=== PATIENT | female | born 1965 | race Caucasian/White ===

== ENCOUNTER → 2016-04-13 | Outpatient (REF) | payer BC, OTHER ==
[2016-04-13 14:19] LABS: BASO % 0.2 % (0.0-1.0); EOS % 0.1 % (0.0-3.0); LARGE UNSTAINED CELL # 0.1 K/mm3 (0.0-0.4); LARGE UNSTAINED CELL % 1.6 % (0.0-4.0); LYMPH # 1.3 K/mm3 (1.5-4.5); LYMPH % 18.3 % (24.0-44.0); MEAN CORPUSCULAR HEMOGLOBIN 29.5 pg (27.0-33.0); MEAN CORPUSCULAR HGB CONC 31.6 g/dl (32.0-36.5); MEAN CORPUSCULAR VOLUME 93.2 fl (80.0-96.0); MONO # 0.5 K/mm3 (0.0-0.8); MONO % 6.9 % (0.0-5.0); NEUTROPHILS # 5.3 K/mm3 (1.8-7.7); NEUTROPHILS % 72.8 % (36.0-66.0); PLATELET COUNT, AUTOMATED 248 k/mm3 (150-450); RED CELL DISTRIBUTION WIDTH 12.6 % (11.5-14.5); WHITE BLOOD COUNT 7.3 K/mm3 (4.0-10.0)
[2016-04-13 14:33] LABS: VITAMIN B12 LEVEL 389 PG/ML
[2016-04-13 14:34] LABS: FOLATE 17.7 NG/ML
[2016-04-13 14:57] LABS: ALBUMIN 3.6 GM/DL (3.2-5.2); ALKALINE PHOSPHATASE 87 U/L (45-117); ALT/SGPT 41 U/L (12-78); ANION GAP 9 MEQ/L (8-16); AST/SGOT 28 U/L (15-37); BILIRUBIN,TOTAL 0.4 MG/DL (0.2-1.0); BLOOD UREA NITROGEN 18 MG/DL (7-18); CALCIUM LEVEL 9.2 MG/DL (8.5-10.1); CARBON DIOXIDE LEVEL 28 MEQ/L (21-32); CHLORIDE LEVEL 107 MEQ/L (98-107); CHOLESTEROL LEVEL 182 MG/DL (<200); CREATININE FOR GFR 0.97 MG/DL (0.55-1.02); FERRITIN 509 NG/ML (8-252); FREE T4 1.14 NG/DL (0.76-1.46); GLOMERULAR FILTRATION RATE > 60.0 (>51); GLUCOSE, FASTING 62 MG/DL (70-105); PERCENT SATURATION 34.6 % (13.2-37.4); POTASSIUM SERUM 4.1 MEQ/L (3.5-5.1); SODIUM LEVEL 144 MEQ/L (136-145); TOTAL IRON BINDING CAPACITY 269 UG/DL (250-450); TOTAL PROTEIN 7.6 GM/DL (6.4-8.2); TRIGLYCERIDES LEVEL 93 MG/DL (<150)
== END ==
LOC: M LAB REF 13:17
PROVIDERS: ATTEND Family Medicine
DX: D51.3 Other dietary vitamin B12 deficiency anemia (principal); D50.9 Iron deficiency anemia, unspecified; Z13.29 Encounter for screening for other suspected endocrine disorder

== ENCOUNTER 2017-01-21 10:54 | Day surgery (SDC) | payer OTHER ==
[~2017-01-21] VITALS: Ht 160 cm; Wt 99.8 kg
[~2017-01-21 10:54] MED LIST: ALLE180T33 PO; CEFD1CAP8 PO; CELE1CAP4 PO; COCO1000 PO; GABA-283 PO; LASI20TA PO; PROBCAP4 PO; SING10TA32 PO; SPIR25TA2 PO; VALT500T PO; VITA100072 IV; ZANA4CAP PO
[2017-01-21] MEDS ORDERED: ceFAZolin 2 GM/D5W 50 ML IV BAG (J0690) As Ordered ONE ×2 (11:41→16:32)
[2017-01-21] MEDS ORDERED: LR 1,000 ML IV SCH ×2 (11:45→18:30)
[2017-01-21 11:47] LABS: MEAN CORPUSCULAR HEMOGLOBIN 30.4 pg (27.0-33.0); MEAN CORPUSCULAR HGB CONC 33.5 g/dl (32.0-36.5); MEAN CORPUSCULAR VOLUME 90.6 fl (80.0-96.0); RED CELL DISTRIBUTION WIDTH 12.4 % (11.5-14.5); WHITE BLOOD COUNT 6.1 10^3/uL (4.0-10.0)
[2017-01-21] MEDS ORDERED: ROCURONIUM BROMIDE 50 MG/5 ML VIAL/SYRINGE As Ordered ONE ×3 (13:12→16:39)
[2017-01-21] MEDS ORDERED: METHYLENE BLUE 0.5% (5MG/ML) 10 ML AMP (PROVAYBLUE)(Q9968 PER 1MG) As Ordered ONE (13:14)
[2017-01-21] MEDS ORDERED: BUPIVACAINE HCL 0.25% 10 ML VIAL As Ordered ONE (13:14)
[2017-01-21] MEDS ORDERED: dexameTHASONE 4 MG/ML 1ML VIAL (J1100) As Ordered ONE (13:34)
[2017-01-21] MEDS ORDERED: METOCLOPRAMIDE INJ 10MG/2ML VIAL (J2765) As Ordered ONE (13:34)
[2017-01-21] MEDS ORDERED: ONDANSETRON 4MG/2ML VIAL (J2405) As Ordered ONE (13:35)
[2017-01-21] MEDS ORDERED: PROPOFOL 500 MG/50 ML VIAL As Ordered ONE (13:39)
[2017-01-21] MEDS ORDERED: fentaNYL 250 MCG/5 ML INJECTION (J3010) As Ordered ONE (13:39)
[2017-01-21] MEDS ORDERED: KETOROLAC 60 MG/2 ML VIAL (J1885) As Ordered ONE (13:58)
[2017-01-21] MEDS ORDERED: LIDOCAINE 2% INJ 100 MG/5 ML SDV (FOR ANES.) As Ordered ONE (13:59)
[2017-01-21] MEDS ORDERED: NEOSTIGMINE 10 MG/10 ML VIAL (J2710) As Ordered ONE (13:59)
[2017-01-21] MEDS ORDERED: GLYCOPYRROLATE INJ 0.2 MG/ML 2 ML VIAL As Ordered ONE (13:59)
[2017-01-21] MEDS ORDERED: SUCCINYLCHOLINE 100 MG/5 ML SYRINGE (J0330) As Ordered ONE (14:05)
[2017-01-21] MEDS ORDERED: HYDROmorphone HCL 2 MG/ML 1ML VIAL (J1170) As Ordered ONE (14:49)
[2017-01-21] MEDS ORDERED: ONDANSETRON 4MG/2ML VIAL (J2405) IV PRN ×2 (18:30→18:45)
[2017-01-21] MEDS ORDERED: METOCLOPRAMIDE INJ 10MG/2ML VIAL (J2765) IV PRN (18:30)
[2017-01-21] MEDS ORDERED: MEPERIDINE INJ 25 MG/ML VIAL (J2175) IV PRN (18:30)
[2017-01-21] MEDS: fentaNYL 100 MCG/2 ML INJECTION (J3010) IV PRN ×4 (18:44→19:10)
[2017-01-21] MEDS ORDERED: MORPHINE 4 MG/ML 1ML SYRINGE IV PRN (18:45)
[2017-01-21] MEDS ORDERED: KETOROLAC 30 MG/ML VIAL (J1885) IV PRN (18:45)
[2017-01-21] MEDS ORDERED: PERCOCET 5MG/325MG TAB PO PRN (18:45)
[2017-01-21] MEDS: PERCOCET 5MG/325MG TAB PO PRN ×3 (18:47→23:56)
--- NOTE | 2017-01-21 19:04 | RO ---
DATE OF PROCEDURE: 01/21/2017 PREPROCEDURE DIAGNOSIS: Pelvic pain, large fibroid uterus. POSTPROCEDURE DIAGNOSIS: Pelvic pain, large fibroid uterus. PROCEDURE: Robotic-assisted laparoscopic hysterectomy, bilateral salpingo-oophorectomy, cystoscopy, repair of ureteral transection on the right. SURGEON: Silvio Brand MD ION IMPLANT MACHINE OPERATOR: ANESTHESIA: General endotracheal ESTIMATED BLOOD LOSS: 200 mL. URINE OUTPUT: 500 mL. FINDINGS: Enlarged irregular fibroid uterus. Normal appearing ovaries and fallopian tubes bilaterally. Closed proximity of the right ovary to the right ureter due to distortion from uterine fibroids. DESCRIPTION OF PROCEDURE: The patient was taken to the operating room where general endotracheal anesthesia was induced. She was prepped and draped in a sterile fashion in the dorsal lithotomy position. A Moon catheter was placed. A [employer] uterine manipulator was placed. Periumbilical incision was made with a scalpel. A Veress needle was placed through this incision. A pneumoperitoneum was created. An 11 mm trocar was placed through this incision using Visiport. Three 8 mm suprapubic ports were placed under direct visualization without difficulty. Attention was turned to the right adnexa. The right IP ligament was coagulated and incised adjacent to the hilum of the ovary. Within a matter of minutes into the case, it was recommended that there was an injury to the right ureteter, which was adjacent to the hilum of the ovary and had been put on stretch due to tension from uterine fibroids. The injury was immediately identified. Both ends of the ureter were tagged with #2-0 Vicryl suture. The procedure was resumed, broad ligament attachments to the right ovary were taken down sharply using monopolar Endo Annalisa and a bipolar PK device. The round ligament was coagulated and incised. Anterior and posterior leaves of the broad ligament were . The uterine vessels were skeletonized, coagulated and incised. On the left, the IP ligament was coagulated and incised. The ureter was identified away from the operative site and not adjacent to the left ovary. Broad ligament attachments were taken down sharply. The left round ligament was coagulated and incised and the anterior and posterior leaves of the broad ligament were . The uterine vessels on the left were coagulated, incised. A colpotomy was created using the monopolar Endo Annalisa in the upper vagina at the level of the VCare cup. The specimen including the uterus, cervix and both ovaries and fallopian tubes were removed through the vagina. The vaginal cuff was closed with #2 V-Loc suture in a running fashion. The pelvis was irrigated copiously. The patient received methylene blue dye intravenously. Cystoscopy was performed using a 70 degrees cystoscope. Multiple ureteral jets were noted on the left side. There was no ureteral jet noted on the right side as expected. There was no injury to the bladder. Dr. Garfield Martino from urology had been contacted earlier about the incidental ureteral injury. He kindly came to the operating room and performed an end-to-end anastomosis primary anastomosis of the ureter on the right. For details of the operation please see Dr. Martino's operative note. At the end of the case, sponge, instrument and needle counts were correct. A HOLLY drain was left in place. The skin was closed with #4-0 Monocryl subcuticular sutures.
--- NOTE | 2017-01-21 19:10 | REP ---
KUB: Single view: History: Status post stent placement. Findings: Supine portable view of the abdomen demonstrates a double pigtail stent in place in the right ureter. There is a presumed drainage catheter along the left lower quadrant of the abdomen. There are clips in the right upper quadrant. The bowel gas pattern is normal. There are however two areas of extra abdominal subcutaneous or soft tissue emphysema. One is along the obturator foramen in the right pelvis and along the right pelvic sidewall and the other is along the right flank. No other abnormality. Impression: Interstitial extra abdominal air along the right pelvis and right flank. Right double pigtail ureteral stent in place and left lower quadrant surgical drain seen. Signed by Rob Ferrera MD 01/21/2017 07:25 P
[2017-01-21] MEDS: oxyBUTYnin 5 MG TAB PO PRN (19:14)
[2017-01-21 19:55] VITALS: BP 139/76
[2017-01-21 20:25] VITALS: BP 132/85
[2017-01-21 20:55] VITALS: BP 133/72
[2017-01-21] MEDS ORDERED: GABAPENTIN 400 MG CAP PO SCH (21:00)
--- NOTE | 2017-01-21 21:04 | RO ---
DATE OF PROCEDURE: 01/21/2017 PREPROCEDURE DIAGNOSIS: Right ureteral injury. POSTPROCEDURE DIAGNOSIS: Right ureteral injury. PROCEDURE: Right robotic-assisted laparoscopic ureteroureterostomy, cystoscopy, right ureteral stent placement. SURGEON: Dr. Garfield Martino ENGINEER AUTOMATED EQUIPMENT: None. ANESTHESIA: General. OPERATIVE INDICATIONS: This is a 51-year-old female who was undergoing a robotic-assisted laparoscopic hysterectomy with Dr. Brand today. There was an inadvertent right ureteral transection. Urology was called into the operating room to assist with repair. DESCRIPTION OF PROCEDURE: By the time I started my procedure, Dr. Brand had already completed the hysterectomy. The patient was already prepped and draped in the dorsal lithotomy position. Robotic ports had already been placed. I began my portion of the procedure by performing a rigid cystoscopy. At this point, a guidewire was advanced up the right ureter. I then advanced a ureteral stent up the right ureter. The wire was then removed, and there was an adequate curl of the stent within the bladder. I then removed the cystoscope and placed an 18-[place] Moon catheter. The balloon was filled with sterile water. At this point, the robot was then re-docked. Once I examined the abdomen, Dr. Brand had already marked the location of the distal and proximal ureter. There appeared to be a complete transection. There was cautery injury to both ends of the ureter. At this point, I mobilized the proximal and distal ends of the ureter. I then excised the cauterized ends of the proximal and distal ureter using cold scissors. At this point, both ends of the ureter were spatulated. I then inserted a guidewire in through the robotic-assisted port and advanced that in through one of the holes of the stent. This was placed all the way through the stent until it was seen protruding through the proximal end of the stent. I then utilized the wire to guide the proximal end of the stent into the proximal ureter. Once the stent was all the way up the ureter, the wire was then removed and at this point, the proximal end of the stent was within the kidney. After that was done, the anastomosis was then performed in a running fashion with two separate #4-0 Vicryl sutures. This was done in a tension-free manner. Once done with the anastomosis, it appeared to be watertight. After the anastomosis was performed, a Richmond-Marino drain was brought in through the left hand robotic port site and then the end of the drain was placed near the anastomosis. Once this was done, this marked the conclusion and my portion of the procedure, and it was turned back over to Dr. Brand to remove the robotic ports and close the abdomen. ESTIMATED BLOOD LOSS: 5 mL for my portion of the procedure. COMPLICATIONS: None. SPECIMENS: None. PLAN: The patient will be kept in the hospital overnight per routine from Dr. Brand. As soon as she is tolerating a regular diet and her pain is controlled with oral pain medications, she will be able to be discharged home tomorrow. If her Richmond-Marino drain output is low, that can be removed prior to discharge. If there is any concern, fluid creatinine can be sent from the Richmond-Marino drain and if creatinine is consistent with serum, then the drain can be removed. Her Moon catheter can be removed tomorrow morning. Her stent will need to be left in place for 4 weeks. I will have her followup with me in clinic for a postoperative visit in 1-2 weeks. I will plan to take her stent out in the office in 4 weeks. HARMONY
[2017-01-21] MEDS: LR 1,000 ML IV SCH (21:56)
[2017-01-21 22:00] VITALS: BP 126/67
[2017-01-21] MEDS: DOCUSATE SODIUM 100 MG CAP PO SCH (22:06)
[2017-01-21 23:00] VITALS: BP 120/59
[2017-01-22] VITALS: BP 120/59
[2017-01-22 01:00] VITALS: BP 119/69
[2017-01-22 02:00] VITALS: BP 139/67
[2017-01-22] MEDS: LR 1,000 ML IV SCH (02:45)
[2017-01-22] MEDS: oxyBUTYnin 5 MG TAB PO PRN ×2 (03:12→12:12)
[2017-01-22 05:00] VITALS: BP 122/66
[2017-01-22 08:00] VITALS: BP 129/76
[2017-01-22] MEDS: DOCUSATE SODIUM 100 MG CAP PO SCH (08:21)
[2017-01-22] MEDS ORDERED: OXYC1TAB23 PO (10:51)
[2017-01-22] MEDS ORDERED: DITR5TAB PO (10:57)
[2017-01-22] MEDS ORDERED: PERCOCET PO (10:57)
[2017-01-22] MEDS: PERCOCET 5MG/325MG TAB PO PRN (12:12)
--- NOTE | 2017-01-22 13:43 | IPNPDOC ---
Assessment/Plan Date Seen The patient was seen on 01/22/17. Plan/VTE VTE Prophylaxis Ordered?: No Subjective Review oF Systems Chief Complaint The patient is a 51-year-old female admitted with a reason for visit of Large Fibroid Uterus; s/p right primary ureteroureterostomy intraoperative secondary to ureter transection. Patient not seen by Urology as already discharged home by primary service. Objective Vital Signs/I&O Vital Signs Date Time Temp Pulse Resp B/P (MAP) Pulse Ox O2 Delivery O2 Flow Rate FiO2 01/22/17 12:12 16 01/22/17 08:00 97.7 68 129/76 (93) 97 Room Air 01/22/17 05:00 2.0 I&O- Last 24 Hours up to 6 AM 01/23/17 06:00 Intake Total 390 ml Output Total 655 ml Balance -265 ml ALEISHA GERARDO MD Jan 22, 2017 13:43
== END 2017-01-22 12:20 | disposition home or self-care (01) ==
LOC: M SDC 10:54 → M PED 19:45 → M SDC 01-22 12:20
PROVIDERS: ATTEND Specialist
DX: D25.1 Intramural leiomyoma of uterus (principal); D25.2 Subserosal leiomyoma of uterus; N83.201 Unspecified ovarian cyst, right side; S37.19XA Other injury of ureter, initial encounter; Y69 Unspecified misadventure during surgical and medical care; Y92.234 Operating room of hospital as the place of occurrence of the external cause; Y99.8 Other external cause status; I10 Essential (primary) hypertension; G47.33 Obstructive sleep apnea (adult) (pediatric); E53.8 Deficiency of other specified B group vitamins; D64.9 Anemia, unspecified; J45.909 Unspecified asthma, uncomplicated; R60.0 Localized edema; D80.2 Selective deficiency of immunoglobulin A [IgA]; M12.9 Arthropathy, unspecified; Z88.1 Allergy status to other antibiotic agents; Z88.8 Allergy status to other drugs, medicaments and biological substances; Z91.09 Other allergy status, other than to drugs and biological substances; Z79.899 Other long term (current) drug therapy; Z86.19 Personal history of other infectious and parasitic diseases; Z86.14 Personal history of Methicillin resistant Staphylococcus aureus infection
CPT/HCPCS: 50949; 52332; 58571; 74000; 85027; 86850; 86900; 86901; 88309; 96374; 96375; A6024; C1769; C2617; J0330; J0690; J1100; J1170; J1885; J2405; J2710; J2765; J3010; Q9968

== ENCOUNTER → 2017-03-31 | Outpatient (REF) | payer OTHER ==
[~2017-03-31] MED LIST changes: +DITR5TAB PO; +OXYC1TAB23 PO; +PERCOCET PO
[2017-03-31 13:42] LABS: CALCIUM LEVEL 8.9 MG/DL (8.5-10.1); CREATININE FOR GFR 1.61 MG/DL (0.55-1.02); GLOMERULAR FILTRATION RATE 35.9 (>51); POTASSIUM SERUM 4.5 MEQ/L (3.5-5.1)
== END ==
LOC: M LAB REF 12:01
PROVIDERS: ATTEND Urology
DX: N13.5 Crossing vessel and stricture of ureter without hydronephrosis (principal)

== ENCOUNTER → 2017-04-07 | Outpatient (CLI) | payer OTHER ==
[~2017-04-07] MED LIST changes: -ALLE180T33 PO; -CEFD1CAP8 PO; -CELE1CAP4 PO; -COCO1000 PO; -DITR5TAB PO; -GABA-283 PO; +ISOVUE-370 76% 100ML VIAL (Q9967) As Ordered; -LASI20TA PO; -OXYC1TAB23 PO; -PERCOCET PO; -PROBCAP4 PO; -SING10TA32 PO; -SPIR25TA2 PO; -VALT500T PO; -VITA100072 IV; -ZANA4CAP PO
== END ==
LOC: M RAD 09:49
DX: N20.1 Calculus of ureter (principal)

== ENCOUNTER → 2017-04-13 | Outpatient (CLI) | payer OTHER ==
[2017-04-13 15:54] LABS: HEMATOCRIT 39.7 % (36.0-47.0); HEMOGLOBIN 12.9 g/dl (12.0-16.0); MEAN CORPUSCULAR HEMOGLOBIN 29.3 pg (27.0-33.0); MEAN CORPUSCULAR HGB CONC 32.5 g/dl (32.0-36.5); MEAN CORPUSCULAR VOLUME 90.2 fl (80.0-96.0); PLATELET COUNT, AUTOMATED 211 10^3/uL (150-450); RED CELL DISTRIBUTION WIDTH 12.7 % (11.5-14.5); WHITE BLOOD COUNT 5.4 10^3/uL (4.0-10.0)
[2017-04-13 17:21] LABS: ANION GAP 6 MEQ/L (8-16); BLOOD UREA NITROGEN 17 MG/DL (7-18); CALCIUM LEVEL 8.3 MG/DL (8.5-10.1); CARBON DIOXIDE LEVEL 32 MEQ/L (21-32); CHLORIDE LEVEL 105 MEQ/L (98-107); CREATININE FOR GFR 1.65 MG/DL (0.55-1.02); GLOMERULAR FILTRATION RATE 34.9 (>51); GLUCOSE, FASTING 99 MG/DL (70-105); POTASSIUM SERUM 3.8 MEQ/L (3.5-5.1); SODIUM LEVEL 143 MEQ/L (136-145)
== END ==
LOC: M LAB 15:26
DX: Z01.818 Encounter for other preprocedural examination (principal); N13.5 Crossing vessel and stricture of ureter without hydronephrosis
CPT/HCPCS: 80048

== ENCOUNTER → 2017-04-14 | Outpatient (CLI) | payer OTHER | LOC: M EKG 11:00 | DX: Z01.818 Encounter for other preprocedural examination (principal); N13.5 Crossing vessel and stricture of ureter without hydronephrosis | CPT/HCPCS: 71046 ==

== ENCOUNTER 2017-04-18 11:09 | Inpatient (IN) | payer OTHER ==
[2017-04-18] MEDS: LR 1,000 ML IV ×2 (12:19→16:30)
[2017-04-18] MEDS ORDERED: fentaNYL 100 MCG/2 ML INJECTION (J3010) As Ordered (14:06)
[2017-04-18] MEDS ORDERED: MIDAZOLAM INJ 2 MG/2 ML VIAL (J2250) As Ordered (14:06)
[2017-04-18] MEDS ORDERED: ONDANSETRON 4MG/2ML VIAL (J2405) As Ordered (14:34)
[2017-04-18] MEDS ORDERED: dexameTHASONE 4 MG/ML 1ML VIAL (J1100) As Ordered (14:34)
[2017-04-18] MEDS: CONRAY-60 60% 50ML VIAL (Q9961) As Ordered (14:38)
[2017-04-18] MEDS ORDERED: PERCOCET 5MG/325MG TAB PO (15:15)
[2017-04-18] MEDS ORDERED: ONDANSETRON 4MG/2ML VIAL (J2405) IV (15:15)
[2017-04-18] MEDS ORDERED: fentaNYL 100 MCG/2 ML INJECTION (J3010) IV (15:15)
[2017-04-18] MEDS ORDERED: LABETALOL HCL 100 MG/20 ML VIAL As Ordered (15:22)
[2017-04-18] MEDS: LABETALOL HCL 100 MG/20 ML VIAL IV ×6 (15:25→16:30)
[2017-04-18] MEDS ORDERED: hydrALAZINE INJ 20 MG/ML VIAL IV (18:00)
[2017-04-18] MEDS: MONTELUKAST 10 MG TAB PO (18:40)
[2017-04-18] MEDS: ACETAMINOPHEN TAB 650MG DOSE (2X325MG) PO (18:40)
[2017-04-18] MEDS: amLODIPine 5 MG TAB PO (18:41)
[2017-04-18] MEDS: FEXOFENADINE 60 MG TAB PO (19:40)
[2017-04-18] MEDS: **hydrALAZINE HCL** 25 MG TAB PO (20:01)
[2017-04-18] MEDS: tiZANidine 4 MG TAB PO (22:01)
[2017-04-18] MEDS: CEFUROXIME 500 MG TAB PO (22:01)
[2017-04-18] MEDS: GABAPENTIN 400 MG CAP PO (22:01)
[2017-04-18] MEDS: DOCUSATE SODIUM 100 MG CAP PO (22:01)
[2017-04-18] MEDS: PERCOCET 5MG/325MG TAB PO (22:02)
[2017-04-18] MEDS: valACYclovir HCL 500 MG TAB PO (22:02)
[2017-04-19] MEDS ORDERED: NS 1,000 ML IV
[2017-04-19] MEDS: **hydrALAZINE HCL** 25 MG TAB PO ×3 (06:00→21:16)
[2017-04-19 07:53] LABS: HEMATOCRIT 38.4 % (36.0-47.0); HEMOGLOBIN 12.7 g/dl (12.0-16.0); MEAN CORPUSCULAR HEMOGLOBIN 29.2 pg (27.0-33.0); MEAN CORPUSCULAR HGB CONC 33.1 g/dl (32.0-36.5); MEAN CORPUSCULAR VOLUME 88.3 fl (80.0-96.0); PLATELET COUNT, AUTOMATED 236 10^3/uL (150-450); RED BLOOD COUNT 4.35 10^6/uL (4.00-5.40); RED CELL DISTRIBUTION WIDTH 12.3 % (11.5-14.5); WHITE BLOOD COUNT 9.3 10^3/uL (4.0-10.0)
[2017-04-19 07:55] LABS: ANION GAP 8 MEQ/L (8-16); BLOOD UREA NITROGEN 17 MG/DL (7-18); CALCIUM LEVEL 8.5 MG/DL (8.5-10.1); CARBON DIOXIDE LEVEL 27 MEQ/L (21-32); CHLORIDE LEVEL 104 MEQ/L (98-107); CREATININE FOR GFR 1.49 MG/DL (0.55-1.02); GLOMERULAR FILTRATION RATE 39.3 (>51); GLUCOSE, FASTING 127 MG/DL (70-105); SODIUM LEVEL 139 MEQ/L (136-145)
[2017-04-19 08:07] LABS: INR 0.97
[2017-04-19 08:08] LABS: PARTIAL THROMBOPLASTIN TIME 29.2 SECONDS (26.8-37.9)
[2017-04-19] MEDS: DOCUSATE SODIUM 100 MG CAP PO ×2 (09:28→21:16)
[2017-04-19] MEDS: CEFUROXIME 500 MG TAB PO ×2 (09:38→21:16)
[2017-04-19] MEDS: MONTELUKAST 10 MG TAB PO (09:39)
[2017-04-19] MEDS: FEXOFENADINE 60 MG TAB PO (09:39)
[2017-04-19] MEDS: amLODIPine 5 MG TAB PO (09:39)
[2017-04-19] MEDS: **hydrALAZINE** 10 MG TAB PO (14:21)
[2017-04-19] MEDS: FLUCONAZOLE 100 MG TAB PO (16:11)
[2017-04-19] MEDS: LACTOBACILLUS ACIDOPHILUS CAP (BACID) PO (21:16)
[2017-04-19] MEDS: valACYclovir HCL 500 MG TAB PO (21:16)
[2017-04-19] MEDS: tiZANidine 4 MG TAB PO (21:16)
[2017-04-19] MEDS: GABAPENTIN 400 MG CAP PO (21:16)
[2017-04-20 06:55] LABS: HEMATOCRIT 37.2 % (36.0-47.0); HEMOGLOBIN 12.1 g/dl (12.0-16.0); MEAN CORPUSCULAR HEMOGLOBIN 29.1 pg (27.0-33.0); MEAN CORPUSCULAR HGB CONC 32.5 g/dl (32.0-36.5); MEAN CORPUSCULAR VOLUME 89.4 fl (80.0-96.0); PLATELET COUNT, AUTOMATED 204 10^3/uL (150-450); RED BLOOD COUNT 4.16 10^6/uL (4.00-5.40); RED CELL DISTRIBUTION WIDTH 12.6 % (11.5-14.5); WHITE BLOOD COUNT 6.9 10^3/uL (4.0-10.0)
[2017-04-20 07:14] LABS: ANION GAP 4 MEQ/L (8-16); BLOOD UREA NITROGEN 23 MG/DL (7-18); CALCIUM LEVEL 8.5 MG/DL (8.5-10.1); CARBON DIOXIDE LEVEL 31 MEQ/L (21-32); CHLORIDE LEVEL 105 MEQ/L (98-107); CREATININE FOR GFR 1.46 MG/DL (0.55-1.02); GLOMERULAR FILTRATION RATE 40.2 (>51); GLUCOSE, FASTING 100 MG/DL (70-105); POTASSIUM SERUM 3.6 MEQ/L (3.5-5.1); SODIUM LEVEL 140 MEQ/L (136-145)
[2017-04-20] MEDS: **hydrALAZINE HCL** 25 MG TAB PO ×3 (08:08→17:20)
[2017-04-20] MEDS: LACTOBACILLUS ACIDOPHILUS CAP (BACID) PO (08:09)
[2017-04-20] MEDS: FEXOFENADINE 60 MG TAB PO (08:09)
[2017-04-20] MEDS: MONTELUKAST 10 MG TAB PO (08:10)
[2017-04-20] MEDS: CEFUROXIME 500 MG TAB PO (08:10)
[2017-04-20] MEDS: DOCUSATE SODIUM 100 MG CAP PO (08:10)
[2017-04-20] MEDS: amLODIPine 5 MG TAB PO (08:10)
[2017-04-20] MEDS ORDERED: LIDOCAINE 2% MDV 20 ML VIAL As Ordered (11:19)
[2017-04-20] MEDS ORDERED: ISOVUE-300 61% 50ML VIAL (Q9967) As Ordered (11:20)
[2017-04-20] MEDS ORDERED: fentaNYL 100 MCG/2 ML INJECTION (J3010) As Ordered ×2 (11:22→12:27)
[2017-04-20] MEDS ORDERED: MIDAZOLAM INJ 2 MG/2 ML VIAL (J2250) As Ordered (11:22)
[2017-04-20] MEDS ORDERED: ceFAZolin 1GM INJ (J0690 PER 500MG) As Ordered (11:23)
[2017-04-20] MEDS ORDERED: PERCOCET 5MG/325MG TAB As Ordered ×2 (12:27→12:55)
[2017-04-20] MEDS: PERCOCET 5MG/325MG TAB PO ×3 (12:30→17:11)
[2017-04-20] MEDS: fentaNYL 100 MCG/2 ML INJECTION (J3010) IV (12:37)
[2017-04-20] MEDS ORDERED: ONDANSETRON 4MG/2ML VIAL (J2405) IV (13:00)
[2017-04-20] MEDS: ONDANSETRON 4MG/2ML VIAL (J2405) IV (17:09)
== END 2017-04-20 18:05 | disposition home or self-care (01) | DRG 661 ==
LOC: M SDC 11:09 → M PED 16:13
PROC: 0T9B80Z Drainage of Bladder with Drainage Device, Via Natural or Artificial Opening Endoscopic (ICD-10-PCS; 2017-04-18 14:00)
PROC: 0TJ98ZZ Inspection of Ureter, Via Natural or Artificial Opening Endoscopic (ICD-10-PCS; 2017-04-18 14:00)
PROC: 0T7 Urinary System, Dilation (ICD-10-PCS; principal; 2017-04-18 14:18)
DX: N13.5 Crossing vessel and stricture of ureter without hydronephrosis (principal); E78.5 Hyperlipidemia, unspecified; G47.33 Obstructive sleep apnea (adult) (pediatric); I16.0 Hypertensive urgency; J30.9 Allergic rhinitis, unspecified; Z90.710 Acquired absence of both cervix and uterus; Z88.1 Allergy status to other antibiotic agents; Z88.8 Allergy status to other drugs, medicaments and biological substances; Z91.048 Other nonmedicinal substance allergy status; Z79.899 Other long term (current) drug therapy; Z99.89 Dependence on other enabling machines and devices; Z90.49 Acquired absence of other specified parts of digestive tract

== ENCOUNTER → 2017-04-26 | Outpatient (REF) | payer OTHER ==
[2017-04-26 13:16] LABS: HEMATOCRIT 42.6 % (36.0-47.0); HEMOGLOBIN 14.1 g/dl (12.0-16.0); MEAN CORPUSCULAR HEMOGLOBIN 29.1 pg (27.0-33.0); MEAN CORPUSCULAR HGB CONC 33.1 g/dl (32.0-36.5); MEAN CORPUSCULAR VOLUME 87.8 fl (80.0-96.0); PLATELET COUNT, AUTOMATED 246 10^3/uL (150-450); RED BLOOD COUNT 4.85 10^6/uL (4.00-5.40); RED CELL DISTRIBUTION WIDTH 12.4 % (11.5-14.5); WHITE BLOOD COUNT 8.2 10^3/uL (4.0-10.0)
[2017-04-26 13:58] LABS: ANION GAP 9 MEQ/L (8-16); BLOOD UREA NITROGEN 23 MG/DL (7-18); CALCIUM LEVEL 9.1 MG/DL (8.5-10.1); CARBON DIOXIDE LEVEL 29 MEQ/L (21-32); CHLORIDE LEVEL 101 MEQ/L (98-107); CREATININE FOR GFR 1.45 MG/DL (0.55-1.02); GLOMERULAR FILTRATION RATE 40.5 (>51); GLUCOSE, FASTING 112 MG/DL (70-105); POTASSIUM SERUM 4.3 MEQ/L (3.5-5.1); SODIUM LEVEL 139 MEQ/L (136-145)
== END ==
LOC: M LAB REF 12:54
DX: Z01.818 Encounter for other preprocedural examination (principal); N13.5 Crossing vessel and stricture of ureter without hydronephrosis

== ENCOUNTER → 2017-05-04 | Outpatient (REF) | payer OTHER | LOC: M SMT 13:49 | DX: N13.5 Crossing vessel and stricture of ureter without hydronephrosis (principal); Z01.818 Encounter for other preprocedural examination; N39.0 Urinary tract infection, site not specified ==

== ENCOUNTER 2017-05-09 20:25 | Inpatient (IN) | payer OTHER ==
[2017-05-09] MEDS ORDERED: ACETAMINOPHEN TAB 650MG DOSE (2X325MG) PO (20:30)
[2017-05-09] MEDS ORDERED: MORPHINE 2 MG/ML 1ML SYRINGE IV (20:30)
[2017-05-09 21:57] LABS: HEMATOCRIT 37.7 % (36.0-47.0); HEMOGLOBIN 12.6 g/dl (12.0-16.0); MEAN CORPUSCULAR HEMOGLOBIN 29.1 pg (27.0-33.0); MEAN CORPUSCULAR HGB CONC 33.4 g/dl (32.0-36.5); MEAN CORPUSCULAR VOLUME 87.1 fl (80.0-96.0); PLATELET COUNT, AUTOMATED 208 10^3/uL (150-450); RED BLOOD COUNT 4.33 10^6/uL (4.00-5.40); RED CELL DISTRIBUTION WIDTH 12.3 % (11.5-14.5); WHITE BLOOD COUNT 12.1 10^3/uL (4.0-10.0)
[2017-05-09 22:15] LABS: ANION GAP 6 MEQ/L (8-16); BLOOD UREA NITROGEN 16 MG/DL (7-18); CALCIUM LEVEL 8.6 MG/DL (8.5-10.1); CARBON DIOXIDE LEVEL 30 MEQ/L (21-32); CHLORIDE LEVEL 101 MEQ/L (98-107); CREATININE FOR GFR 1.62 MG/DL (0.55-1.30); GLOMERULAR FILTRATION RATE 35.7 (>51); GLUCOSE, FASTING 129 MG/DL (70-100); POTASSIUM SERUM 3.4 MEQ/L (3.5-5.1); SODIUM LEVEL 137 MEQ/L (136-145)
[2017-05-10] MEDS: PIPERACILLIN/TAZOBACTAM SOD 3.375 GM in APPROPRIATE DILUENT 1 EA IV ×5 (00:14→23:13)
[2017-05-10] MEDS: DOCUSATE SODIUM 100 MG CAP PO ×3 (00:14→20:39)
[2017-05-10] MEDS: OMEPRAZOLE 20 MG CAP PO ×3 (00:14→20:38)
[2017-05-10] MEDS: NS 1,000 ML IV ×2 (02:58→23:12)
[2017-05-10] MEDS: ONDANSETRON 4MG/2ML VIAL (J2405) IV ×3 (02:58→23:13)
[2017-05-10 07:31] LABS: HEMATOCRIT 37.1 % (36.0-47.0); HEMOGLOBIN 12.2 g/dl (12.0-16.0); MEAN CORPUSCULAR HEMOGLOBIN 28.6 pg (27.0-33.0); MEAN CORPUSCULAR HGB CONC 32.9 g/dl (32.0-36.5); MEAN CORPUSCULAR VOLUME 87.1 fl (80.0-96.0); PLATELET COUNT, AUTOMATED 211 10^3/uL (150-450); RED BLOOD COUNT 4.26 10^6/uL (4.00-5.40); RED CELL DISTRIBUTION WIDTH 12.4 % (11.5-14.5); WHITE BLOOD COUNT 8.3 10^3/uL (4.0-10.0)
[2017-05-10 07:43] LABS: ANION GAP 5 MEQ/L (8-16); BLOOD UREA NITROGEN 14 MG/DL (7-18); CALCIUM LEVEL 8.7 MG/DL (8.5-10.1); CARBON DIOXIDE LEVEL 32 MEQ/L (21-32); CHLORIDE LEVEL 103 MEQ/L (98-107); CREATININE FOR GFR 1.53 MG/DL (0.55-1.30); GLOMERULAR FILTRATION RATE 38.1 (>51); GLUCOSE, FASTING 100 MG/DL (70-100); POTASSIUM SERUM 3.6 MEQ/L (3.5-5.1); SODIUM LEVEL 140 MEQ/L (136-145)
[2017-05-10] MEDS ORDERED: SPIRONOLACTONE 25 MG TAB PO (09:00)
[2017-05-10] MEDS ORDERED: VALSARTAN 80 MG TAB (DIOVAN) PO (09:00)
[2017-05-10] MEDS: **hydrALAZINE** 10 MG TAB PO ×3 (09:45→20:37)
[2017-05-10] MEDS: MAGNESIUM CITRATE 300 ML BTL PO (13:07)
[2017-05-10] MEDS: amLODIPine 10 MG TAB PO (20:38)
[2017-05-11] MEDS ORDERED: **UNRESOLVED NON-FORMULARY MED ORDER XX (00:01)
[2017-05-11] MEDS: PIPERACILLIN/TAZOBACTAM SOD 3.375 GM in APPROPRIATE DILUENT 1 EA IV ×4 (05:30→23:57)
[2017-05-11 07:10] LABS: HEMATOCRIT 37.8 % (36.0-47.0); HEMOGLOBIN 12.5 g/dl (12.0-16.0); MEAN CORPUSCULAR HEMOGLOBIN 29.1 pg (27.0-33.0); MEAN CORPUSCULAR HGB CONC 33.1 g/dl (32.0-36.5); MEAN CORPUSCULAR VOLUME 87.9 fl (80.0-96.0); PLATELET COUNT, AUTOMATED 221 10^3/uL (150-450); RED CELL DISTRIBUTION WIDTH 12.3 % (11.5-14.5); WHITE BLOOD COUNT 6.7 10^3/uL (4.0-10.0)
[2017-05-11] MEDS: LIDOCAINE 2% INJ 100 MG/5 ML SDV (FOR ANES.) XX (07:10)
[2017-05-11] MEDS: fentaNYL 250 MCG/5 ML INJECTION (J3010) XX ×2 (07:10→10:16)
[2017-05-11] MEDS: ROCURONIUM BROMIDE 50 MG/5 ML VIAL XX (07:10)
[2017-05-11] MEDS: PROPOFOL 200 MG/20 ML VIAL XX (07:10)
[2017-05-11] MEDS: LIDOCAINE 1% SDV INJ 30 ML VIAL XX (07:22)
[2017-05-11 07:24] LABS: ANION GAP 5 MEQ/L (8-16); BLOOD UREA NITROGEN 15 MG/DL (7-18); CARBON DIOXIDE LEVEL 31 MEQ/L (21-32); CHLORIDE LEVEL 104 MEQ/L (98-107); CREATININE FOR GFR 1.72 MG/DL (0.55-1.30); GLOMERULAR FILTRATION RATE 33.3 (>51); GLUCOSE, FASTING 104 MG/DL (70-100); POTASSIUM SERUM 3.5 MEQ/L (3.5-5.1); SODIUM LEVEL 140 MEQ/L (136-145)
[2017-05-11] MEDS: DOCUSATE SODIUM 100 MG CAP PO ×2 (09:00→20:32)
[2017-05-11] MEDS: **hydrALAZINE** 10 MG TAB PO ×3 (09:00→20:35)
[2017-05-11] MEDS: OMEPRAZOLE 20 MG CAP PO ×2 (09:00→20:31)
[2017-05-11] MEDS: fentaNYL 100 MCG/2 ML INJECTION (J3010) XX (09:31)
[2017-05-11] MEDS ORDERED: NEOSTIGMINE 10 MG/10 ML VIAL (J2710) As Ordered (09:46)
[2017-05-11] MEDS ORDERED: KETOROLAC 60 MG/2 ML VIAL (J1885) As Ordered (09:46)
[2017-05-11] MEDS ORDERED: GLYCOPYRROLATE INJ 0.2 MG/ML 2 ML VIAL As Ordered (09:46)
[2017-05-11] MEDS ORDERED: ONDANSETRON 4MG/2ML VIAL (J2405) As Ordered (09:46)
[2017-05-11] MEDS ORDERED: dexameTHASONE 4 MG/ML 1ML VIAL (J1100) As Ordered (09:46)
[2017-05-11] MEDS: HYDROmorphone HCL 2 MG/ML 1ML VIAL (J1170) XX (10:53)
[2017-05-11] MEDS ORDERED: ZOSYN 3.375 GM VIAL (J2543) As Ordered (12:39)
[2017-05-11] MEDS: BUPIVACAINE HCL 0.25% 30 ML VIAL XX (14:08)
[2017-05-11 14:29] LABS: HEMATOCRIT 39.6 % (36.0-47.0); MEAN CORPUSCULAR HGB CONC 32.8 g/dl (32.0-36.5); MEAN CORPUSCULAR VOLUME 88.2 fl (80.0-96.0); PLATELET COUNT, AUTOMATED 250 10^3/uL (150-450); RED BLOOD COUNT 4.49 10^6/uL (4.00-5.40); RED CELL DISTRIBUTION WIDTH 12.4 % (11.5-14.5)
[2017-05-11] MEDS ORDERED: ONDANSETRON 4MG/2ML VIAL (J2405) IV (14:45)
[2017-05-11] MEDS ORDERED: fentaNYL 100 MCG/2 ML INJECTION (J3010) IV (14:45)
[2017-05-11] MEDS: LR 1,000 ML IV (14:45)
[2017-05-11 14:46] LABS: ANION GAP 7 MEQ/L (8-16); BLOOD UREA NITROGEN 16 MG/DL (7-18); CALCIUM LEVEL 8.7 MG/DL (8.5-10.1); CARBON DIOXIDE LEVEL 28 MEQ/L (21-32); CHLORIDE LEVEL 107 MEQ/L (98-107); CREATININE FOR GFR 1.87 MG/DL (0.55-1.30); GLOMERULAR FILTRATION RATE 30.2 (>51); GLUCOSE, FASTING 145 MG/DL (70-100); SODIUM LEVEL 142 MEQ/L (136-145)
[2017-05-11] MEDS: NS 1,000 ML IV (15:00)
[2017-05-11] MEDS ORDERED: oxyBUTYnin 5 MG TAB PO (15:30)
[2017-05-11] MEDS: NORCO, ANEXSIA 5/325MG TABLET (HYDROcodone/ACETAMINOPHEN) PO (15:33)
[2017-05-11] MEDS: amLODIPine 10 MG TAB PO (20:35)
[2017-05-11] MEDS: PERCOCET 5MG/325MG TAB PO (20:36)
[2017-05-12] MEDS: PERCOCET 5MG/325MG TAB PO ×5 (00:40→19:19)
[2017-05-12] MEDS: PIPERACILLIN/TAZOBACTAM SOD 3.375 GM in APPROPRIATE DILUENT 1 EA IV (05:28)
[2017-05-12 06:40] LABS: HEMATOCRIT 35.5 % (36.0-47.0); HEMOGLOBIN 11.9 g/dl (12.0-16.0); MEAN CORPUSCULAR HEMOGLOBIN 29.1 pg (27.0-33.0); MEAN CORPUSCULAR HGB CONC 33.5 g/dl (32.0-36.5); MEAN CORPUSCULAR VOLUME 86.8 fl (80.0-96.0); PLATELET COUNT, AUTOMATED 238 10^3/uL (150-450); RED BLOOD COUNT 4.09 10^6/uL (4.00-5.40); RED CELL DISTRIBUTION WIDTH 12.2 % (11.5-14.5); WHITE BLOOD COUNT 11.2 10^3/uL (4.0-10.0)
[2017-05-12 06:59] LABS: ANION GAP 8 MEQ/L (8-16); BLOOD UREA NITROGEN 16 MG/DL (7-18); CALCIUM LEVEL 8.9 MG/DL (8.5-10.1); CARBON DIOXIDE LEVEL 29 MEQ/L (21-32); CHLORIDE LEVEL 103 MEQ/L (98-107); CREATININE FOR GFR 1.54 MG/DL (0.55-1.30); GLOMERULAR FILTRATION RATE 37.8 (>51); GLUCOSE, FASTING 155 MG/DL (70-100); POTASSIUM SERUM 3.4 MEQ/L (3.5-5.1); SODIUM LEVEL 140 MEQ/L (136-145)
[2017-05-12] MEDS: OMEPRAZOLE 20 MG CAP PO ×2 (09:07→20:29)
[2017-05-12] MEDS: **hydrALAZINE** 10 MG TAB PO ×3 (09:08→20:29)
[2017-05-12] MEDS: DOCUSATE SODIUM 100 MG CAP PO ×2 (09:08→20:29)
[2017-05-12] MEDS: NS 1,000 ML IV ×2 (09:39→17:15)
[2017-05-12] MEDS: amLODIPine 10 MG TAB PO (20:29)
[2017-05-13] MEDS: PERCOCET 5MG/325MG TAB PO ×3 (01:27→10:15)
[2017-05-13 07:14] LABS: HEMATOCRIT 37.2 % (36.0-47.0); HEMOGLOBIN 11.9 g/dl (12.0-16.0); MEAN CORPUSCULAR HEMOGLOBIN 28.5 pg (27.0-33.0); MEAN CORPUSCULAR VOLUME 89.2 fl (80.0-96.0); PLATELET COUNT, AUTOMATED 253 10^3/uL (150-450); RED BLOOD COUNT 4.17 10^6/uL (4.00-5.40); RED CELL DISTRIBUTION WIDTH 12.5 % (11.5-14.5)
[2017-05-13 07:35] LABS: ANION GAP 6 MEQ/L (8-16); BLOOD UREA NITROGEN 15 MG/DL (7-18); CALCIUM LEVEL 8.5 MG/DL (8.5-10.1); CARBON DIOXIDE LEVEL 32 MEQ/L (21-32); CHLORIDE LEVEL 104 MEQ/L (98-107); CREATININE FOR GFR 1.42 MG/DL (0.55-1.30); GLOMERULAR FILTRATION RATE 41.5 (>51); GLUCOSE, FASTING 98 MG/DL (70-100); POTASSIUM SERUM 3.4 MEQ/L (3.5-5.1); SODIUM LEVEL 142 MEQ/L (136-145)
[2017-05-13] MEDS: OMEPRAZOLE 20 MG CAP PO (09:21)
[2017-05-13] MEDS: **hydrALAZINE** 10 MG TAB PO (09:21)
[2017-05-13] MEDS: DOCUSATE SODIUM 100 MG CAP PO (09:21)
== END 2017-05-13 10:24 | disposition home or self-care (01) | DRG 661 ==
LOC: M MS5PR 05-11 15:26 → M PED 20:25
PROC: 0TB64ZZ Excision of Right Ureter, Percutaneous Endoscopic Approach (ICD-10-PCS; principal; 2017-05-11 07:30)
PROC: 0TQ Urinary System, Repair (ICD-10-PCS; 2017-05-11 07:30)
PROC: 0T764DZ Dilation of Right Ureter with Intraluminal Device, Percutaneous Endoscopic Approach (ICD-10-PCS; 2017-05-11 07:30)
PROC: 8E0W4CZ Robotic Assisted Procedure of Trunk Region, Percutaneous Endoscopic Approach (ICD-10-PCS; 2017-05-11 07:30)
DX: N13.5 Crossing vessel and stricture of ureter without hydronephrosis (principal); I10 Essential (primary) hypertension; M19.90 Unspecified osteoarthritis, unspecified site; Z88.8 Allergy status to other drugs, medicaments and biological substances; Z91.048 Other nonmedicinal substance allergy status; Z88.1 Allergy status to other antibiotic agents; Z79.899 Other long term (current) drug therapy

== ENCOUNTER → 2017-05-24 | Outpatient (CLI) | payer OTHER | LOC: M RADPRO 14:10 | DX: R32 Unspecified urinary incontinence (principal); N28.89 Other specified disorders of kidney and ureter | CPT/HCPCS: 51600 ==

== ENCOUNTER → 2017-06-09 | Outpatient (REF) | payer OTHER ==
[2017-06-09 14:28] LABS: ANION GAP 7 MEQ/L (8-16); BLOOD UREA NITROGEN 15 MG/DL (7-18); CALCIUM LEVEL 9.3 MG/DL (8.5-10.1); CARBON DIOXIDE LEVEL 28 MEQ/L (21-32); CHLORIDE LEVEL 107 MEQ/L (98-107); CREATININE FOR GFR 1.13 MG/DL (0.55-1.30); FREE T4 0.97 NG/DL (0.76-1.46); GLUCOSE, FASTING 95 MG/DL (70-100); POTASSIUM SERUM 4.2 MEQ/L (3.5-5.1); SODIUM LEVEL 142 MEQ/L (136-145)
== END ==
LOC: M LAB REF 12:13
DX: N17.9 Acute kidney failure, unspecified (principal); I10 Essential (primary) hypertension
CPT/HCPCS: 84443

== ENCOUNTER → 2017-06-16 | Outpatient (REF) | payer OTHER | LOC: M SMT 13:01 | DX: R39.89 Other symptoms and signs involving the genitourinary system (principal) | CPT/HCPCS: 87086 ==

== ENCOUNTER → 2017-07-05 | Outpatient (CLI) | payer OTHER ==
[2017-07-05 13:20] LABS: HEMATOCRIT 37.7 % (36.0-47.0); HEMOGLOBIN 12.2 g/dl (12.0-16.0); IMMATURE GRANULOCYTE % 0.4 % (0-3.0); LYMPH # 1.7 10^3/uL (1.5-4.5); LYMPH % 30.4 % (24.0-44.0); MEAN CORPUSCULAR HEMOGLOBIN 28.5 pg (27.0-33.0); MEAN CORPUSCULAR HGB CONC 32.4 g/dl (32.0-36.5); MEAN CORPUSCULAR VOLUME 88.1 fl (80.0-96.0); MONO # 0.4 10^3/uL (0.0-0.8); MONO % 7.5 % (0.0-5.0); NEUTROPHILS # 3.4 10^3/uL (1.8-7.7); NEUTROPHILS % 61.7 % (36.0-66.0); PLATELET COUNT, AUTOMATED 276 10^3/uL (150-450); RED BLOOD COUNT 4.28 10^6/uL (4.00-5.40); RED CELL DISTRIBUTION WIDTH 13.3 % (11.5-14.5); WHITE BLOOD COUNT 5.5 10^3/uL (4.0-10.0)
[2017-07-05 14:07] LABS: ALBUMIN 3.7 GM/DL (3.2-5.2); ALBUMIN/GLOBULIN RATIO 0.93 (1.00-1.93); ALKALINE PHOSPHATASE 68 U/L (45-117); ALT/SGPT 40 U/L (12-78); ANION GAP 5 MEQ/L (8-16); AST/SGOT 20 U/L (7-37); BILIRUBIN,TOTAL 0.3 MG/DL (0.2-1.0); BLOOD UREA NITROGEN 13 MG/DL (7-18); CALCIUM LEVEL 9.1 MG/DL (8.5-10.1); CARBON DIOXIDE LEVEL 29 MEQ/L (21-32); CHLORIDE LEVEL 108 MEQ/L (98-107); CREATININE FOR GFR 1.04 MG/DL (0.55-1.30); GLOMERULAR FILTRATION RATE 59.5 (>51); GLUCOSE, FASTING 99 MG/DL (70-100); IMMUNOGLOBULIN G 1740 MG/DL (681-1648); IMMUNOGLOBULIN M 222 MG/DL (40-230); POTASSIUM SERUM 3.7 MEQ/L (3.5-5.1); SODIUM LEVEL 142 MEQ/L (136-145); TOTAL PROTEIN 7.7 GM/DL (6.4-8.2)
[2017-07-05 15:02] LABS: IMMUNOGLOBULIN A < 7.8 MG/DL (70-400)
[2017-07-05 15:04] LABS: IMMUNOGLOBULIN E < 3.6 IU/ML (<100)
[2017-07-06 11:28] LABS: RUBELLA IgG QUALITATIVE IMMUNE (IMMUNE)
[2017-07-08 00:07] LABS: ANTI TETANUS ANTIBODY 1.84 IU/mL (<0.10); IMMUNOGLOBULIN D <0.12 mg/dL (<14.11)
[2017-07-08 08:06] LABS: IgG SERUM (part of Subclasses) 1640 mg/dL (700-1600); IgG Subclass 1 1098 mg/dL (248-810); IgG Subclass 2 398 mg/dL (130-555); IgG Subclass 3 111 mg/dL (15-102); IgG Subclass 4 1 mg/dL (2-96)
== END ==
LOC: M LAB 12:33
DX: D84.9 Immunodeficiency, unspecified (principal)
CPT/HCPCS: 82785

== ENCOUNTER → 2017-08-02 | Outpatient (CLI) | payer OTHER | LOC: M RAD 10:29 | DX: N13.5 Crossing vessel and stricture of ureter without hydronephrosis (principal) | CPT/HCPCS: 76775 ==

== ENCOUNTER → 2017-09-12 | Outpatient (CLI) | payer OTHER ==
[2017-09-15 14:14] LABS: STREP PNEUMO TYPE 1 5.3 ug/mL (>1.3); STREP PNEUMO TYPE 12F 0.9 ug/mL (>1.3); STREP PNEUMO TYPE 14 4.2 ug/mL (>1.3); STREP PNEUMO TYPE 18C 6.9 ug/mL (>1.3); STREP PNEUMO TYPE 19A 7.6 ug/mL (>1.3); STREP PNEUMO TYPE 19F 7.6 ug/mL (>1.3); STREP PNEUMO TYPE 3 0.9 ug/mL (>1.3); STREP PNEUMO TYPE 4 7.9 ug/mL (>1.3); STREP PNEUMO TYPE 6B 21.3 ug/mL (>1.3); STREP PNEUMO TYPE 7F 4.6 ug/mL (>1.3); STREP PNEUMO TYPE 8 5.3 ug/mL (>1.3); STREP PNEUMO TYPE 9N 7.1 ug/mL (>1.3); STREP PNEUMO TYPE 9V 5.5 ug/mL (>1.3)
== END ==
LOC: M LAB 06:49
DX: J32.9 Chronic sinusitis, unspecified (principal)
CPT/HCPCS: 86609

== ENCOUNTER 2017-09-22 15:23 | Emergency (ER) | payer OTHER | END 2017-09-22 16:49 | disposition home or self-care (01) | LOC: M ED 15:23 | DX: S00.81XA Abrasion of other part of head, initial encounter (principal); S00.531A Contusion of lip, initial encounter; W01.0XXA Fall on same level from slipping, tripping and stumbling without subsequent striking against object, initial encounter; Y92.9 Unspecified place or not applicable; Y93.9 Activity, unspecified; Y99.0 Civilian activity done for income or pay; I10 Essential (primary) hypertension; Z79.899 Other long term (current) drug therapy; Z88.8 Allergy status to other drugs, medicaments and biological substances; Z91.89 Other specified personal risk factors, not elsewhere classified; Z88.1 Allergy status to other antibiotic agents | CPT/HCPCS: 99283 ==

== ENCOUNTER → 2017-10-06 | Outpatient (CLI) | payer OTHER | LOC: M RAD 15:15 | DX: S00.83XA Contusion of other part of head, initial encounter (principal); J34.2 Deviated nasal septum; X58.XXXA Exposure to other specified factors, initial encounter; Y92.9 Unspecified place or not applicable | CPT/HCPCS: 70486 ==

== ENCOUNTER → 2017-11-09 | Outpatient (CLI) | payer OTHER | LOC: M RAD 06:17 | DX: N13.5 Crossing vessel and stricture of ureter without hydronephrosis (principal) | CPT/HCPCS: 76775 ==

== ENCOUNTER → 2018-01-11 | Outpatient (CLI) | payer OTHER ==
[2018-01-11 08:07] LABS: HEMATOCRIT 41.3 % (36.0-47.0); HEMOGLOBIN 13.5 g/dl (12.0-15.5); IMMATURE GRANULOCYTE % 0.5 % (0-3.0); LYMPH # 1.7 10^3/uL (1.5-4.5); LYMPH % 28.5 % (24.0-44.0); MEAN CORPUSCULAR HEMOGLOBIN 28.8 pg (27.0-33.0); MEAN CORPUSCULAR HGB CONC 32.7 g/dl (32.0-36.5); MEAN CORPUSCULAR VOLUME 88.1 fl (80.0-96.0); MONO # 0.6 10^3/uL (0.0-0.8); MONO % 9.5 % (0.0-5.0); NEUTROPHILS # 3.7 10^3/uL (1.8-7.7); NEUTROPHILS % 61.5 % (36.0-66.0); PLATELET COUNT, AUTOMATED 212 10^3/uL (150-450); RED BLOOD COUNT 4.69 10^6/uL (4.00-5.40); RED CELL DISTRIBUTION WIDTH 12.8 % (11.5-14.5); WHITE BLOOD COUNT 6.1 10^3/uL (4.0-10.0)
[2018-01-11 08:19] LABS: ESTIMATED AVERAGE GLUCOSE 108 MG/DL (60-110); HEMOGLOBIN A1c 5.4 %
[2018-01-11 08:35] LABS: ALBUMIN 3.8 GM/DL (3.2-5.2); ALBUMIN/GLOBULIN RATIO 0.97 (1.00-1.93); ALKALINE PHOSPHATASE 76 U/L (45-117); ALT/SGPT 32 U/L (12-78); ANION GAP 8 MEQ/L (8-16); AST/SGOT 16 U/L (7-37); BILIRUBIN,TOTAL 0.6 MG/DL (0.2-1.0); BLOOD UREA NITROGEN 22 MG/DL (7-18); CALCIUM LEVEL 9.4 MG/DL (8.5-10.1); CARBON DIOXIDE LEVEL 30 MEQ/L (21-32); CHLORIDE LEVEL 103 MEQ/L (98-107); CHOLESTEROL LEVEL 193 MG/DL (<200); CHOLESTEROL RISK RATIO 5.514 (<5); CREATININE FOR GFR 1.16 MG/DL (0.55-1.30); FREE T4 1.06 NG/DL (0.76-1.46); GLOMERULAR FILTRATION RATE 52.4 (>51); GLUCOSE, FASTING 108 MG/DL (70-100); HDL CHOLESTEROL 35 MG/DL (>40); LDL CHOLESTEROL 129 MG/DL (<100); NON-HDL-C 158 MG/DL; POTASSIUM SERUM 3.6 MEQ/L (3.5-5.1); SODIUM LEVEL 141 MEQ/L (136-145); TOTAL PROTEIN 7.7 GM/DL (6.4-8.2); TRIGLYCERIDES LEVEL 147 MG/DL (<150)
== END ==
LOC: M LAB 07:05
DX: Z13.29 Encounter for screening for other suspected endocrine disorder (principal); Z13.220 Encounter for screening for lipoid disorders; Z13.0 Encounter for screening for diseases of the blood and blood-forming organs and certain disorders involving the immune mechanism
CPT/HCPCS: 84443

== ENCOUNTER → 2018-02-24 | Outpatient (CLI) | payer OTHER ==
[2018-02-24 14:22] LABS: FOLATE 11.2 NG/ML; VITAMIN B12 LEVEL 193 PG/ML
== END ==
LOC: M LAB 12:45
DX: D51.9 Vitamin B12 deficiency anemia, unspecified (principal)
CPT/HCPCS: 82746

== ENCOUNTER → 2018-06-14 | Outpatient (CLI) | payer OTHER ==
[~2018-06-14] MED LIST changes: +ALLE180T33 PO; +AMLO10TA5 PO; +AMLO5TAB6 PO; +AMOX875T2 PO; +CEFD1CAP8 PO; +CEFT500T3 PO; +CELE1CAP4 PO; +CIPR-249 PO; +COCO1000 PO; +COLA100C5 PO; +CYAN1000VL IM; +DITR5TAB PO; +FLUO0.0114 AU; +GABA-845 PO; +HYDR10TAB PO; -ISOVUE-370 76% 100ML VIAL (Q9967) As Ordered; +LASI20TA3 PO; +MYRB50TA PO; +ONDA4TAB6; +OXYC1TAB23 PO; +PERCOCET PO; +PROBCAP4 PO; +SING10TA32 PO; +SPIR-10 PO; +SYMB16INH INH; +TYLE325C PO; +TYLE325T5 PO; +VALT500T PO; +VENTAER; +VENTAER INH; +VITA100072 IM; +ZANA4CAP PO; +ZOFR4TAB14 PO
[2018-06-14 11:26] LABS: ALBUMIN 3.6 GM/DL (3.2-5.2); BILIRUBIN,TOTAL 0.4 MG/DL (0.2-1.0); CALCIUM LEVEL 8.8 MG/DL (8.5-10.1); CHOLESTEROL RISK RATIO 5.148 (<5); CREATININE FOR GFR 1.17 MG/DL (0.55-1.30); GLOMERULAR FILTRATION RATE 51.7 (>51); TOTAL PROTEIN 7.6 GM/DL (6.4-8.2)
[2018-06-14 11:54] LABS: HEMOGLOBIN A1c 5.5 %
== END ==
LOC: M LAB 10:13
PROVIDERS: ATTEND Family Medicine
DX: E66.09 Other obesity due to excess calories (principal); E78.2 Mixed hyperlipidemia

== ENCOUNTER → 2018-06-28 | Outpatient (CLI) | payer OTHER ==
--- NOTE | 2018-06-28 11:35 | REPMRS ---
Patient History The patient states she has not had a clinical breast exam in over a year. Patient is postmenopausal. Family history of breast cancer at age 40 in mother, unknown cancer at age 87 in father. Benign excisional biopsy of the right breast, August 02, 2014. [facility] 2 years ago [facility]. Digital Mammo Screening Bilat: June 28, 2018 - Exam #: [id number] Bilateral CC and MLO view(s) were taken. Technologist: Yolande Vail, Technologist Prior study comparison: September 09, 2015, bilateral digital woman screen mammo, performed at [facility]. FINDINGS: There are scattered fibroglandular densities. There is a 13 mm oval-shaped well-circumscribed nodular neodensity in the left breast superiorly at approximate 12 o'clock. This merits further evaluation. There has been no other change in the appearance of the mammogram from the prior studies. There is a mild amount of scattered fibroglandular density which is fairly symmetric. There is no interval development of architectural distortion, or clustered microcalcification suggestive of malignancy. 3-D tomosynthesis shows no additional findings. Assessment: BI-RADS/ACR category 0 mammogram, Incomplete: Need additional imaging evaluation and/or prior mammograms for comparison. Recommendation Ultrasound and special view mammogram of the left breast. This patient's Lifetime Breast Cancer RIsk is estimated at 22.1 %. Annual screening Breast MRI scanniing is recommended for patient's whose lifetime risk assessment is over 20%. This mammogram was interpreted with the aid of an FDA-approved computer-aided dectection system. Breast MRI of both breasts in 6 months. Electronically Signed By: Hermes Ferrera MD 06/28/18 0143
== END ==
LOC: M RAD 07:06
PROVIDERS: ATTEND Family Medicine
DX: Z12.31 Encounter for screening mammogram for malignant neoplasm of breast (principal); Z80.3 Family history of malignant neoplasm of breast; N63.20 Unspecified lump in the left breast, unspecified quadrant

== ENCOUNTER → 2018-07-20 | Outpatient (CLI) | payer OTHER ==
[~2018-07-20] MED LIST changes: +VITA100018 IM; -VITA100072 IM
--- NOTE | 2018-07-20 12:09 | REP ---
DIGITAL DIAGNOSTIC UNILATERAL LEFT BREAST MAMMOGRAPHY WITH CAD AND FOCUSED LEFT BREAST SONOGRAPHY: HISTORY: Screening mammography June 28, 2018 was BIRADS category 0 incomplete because of a nodular opacity seen in the left breast. Diagnostic imaging was recommended. Comparison mammography is from September 09, 2015. MAMMOGRAPHIC FINDINGS: Magnified focal spot compression CC, ML, and MLO images of the left breast confirm the presence of a 13 mm well-circumscribed oval-shaped nodule in the superior and lateral quadrant at approximately 1-o'clock position. No other mammographic finding. SONOGRAPHIC FINDINGS: Left breast is scanned from 12-o'clock position to 2-o'clock position. At 1-o'clock position, there is a hypoechoic oval shaped microlobulated nodule measuring at 10 x 5 x 9 mm 4.4 cm from the nipple. This is felt to correspond with the mammographic opacity. It has a well defined back wall. There is no definite enhanced through transmission and some acoustic shadowing. It is not a simple cyst. IMPRESSION: BIRADS 4: BI-RADS/ACR category 4 mammogram. Suspicious Abnormality - biopsy should be considered. BIRADS category 4 suspicious left breast imaging. Ultrasound-guided needle biopsy recommended. Marker clip placement and post clip placement left breast mammography recommended as well. This mammogram was interpreted with the aid of an FDA-approved computer-aided detection system. The patient states that she/he has not had a clinical breast exam in over a year. The patient letter being requested is M4. Electronically Signed by Rob Ferrera MD 07/20/2018 06:34 P
== END ==
LOC: M RAD 10:01
PROVIDERS: ATTEND Family Medicine
DX: R92.8 Other abnormal and inconclusive findings on diagnostic imaging of breast (principal)

== ENCOUNTER → 2018-08-15 | Outpatient (CLI) | payer OTHER ==
[~2018-08-15] MED LIST changes: +LIDOCAINE 1% MDV 20ML VIAL As Ordered ONE
--- NOTE | 2018-08-15 15:57 | REP ---
POST PROCEDURE MAMMOGRAM: Post procedure mammogram left breast performed following an ultrasound guided biopsy of a left breast nodule. A metallic marking clip is seen at the anterior margin of the nodule. Electronically Signed by Wilmer Mar MD 08/16/2018 03:30 P
--- NOTE | 2018-08-16 14:41 | REP ---
Ultrasound-guided Left breast biopsy. The procedure was performed by NANCY Castillo, under the direct supervision of Dr. Mar. The patient has a history of a 0.9 x 1.0 x 0.5 cm left breast mass seen on a previous ultrasound dated 07/20/2018. The risks and benefits of the procedure were explained to the patient and informed consent was obtained both verbally and written. Directly prior to the start of the procedure, a formal timeout was completed in the procedure room. The left breast mass was localized using ultrasound guidance. The skin was prepped and draped in a sterile fashion. 12 ml 1% lidocaine was used as a local anesthetic. Using ultrasound guidance a 13-gauge suction assisted Mammotome needle was inserted and six ]core biopsy samples were obtained. A marker clip was placed at the biopsy site. The patient tolerated the procedure well and there were no immediate complications. After the appropriate monitored convalescence the patient was discharged from the department. Reviewed by NANCY Keane 08/15/2018 03:47 P Electronically Signed by Wilmer Mar MD 08/16/2018 02:33 P
== END ==
LOC: M RADPRO 13:12
PROVIDERS: ATTEND Surgery
DX: N63.20 Unspecified lump in the left breast, unspecified quadrant (principal)

== ENCOUNTER → 2018-09-12 | Outpatient (CLI) | payer OTHER ==
[~2018-09-12] MED LIST changes: -LIDOCAINE 1% MDV 20ML VIAL As Ordered ONE
[2018-09-12 11:13] LABS: BASO % 0.2 % (0.0-1.0); HEMATOCRIT 44.8 % (36.0-47.0); HEMOGLOBIN 14.3 g/dl (12.0-15.5); LYMPH # 1.5 10^3/uL (1.5-4.5); LYMPH % 26.7 % (24.0-44.0); MEAN CORPUSCULAR HEMOGLOBIN 28.9 pg (27.0-33.0); MEAN CORPUSCULAR HGB CONC 31.9 g/dl (32.0-36.5); MEAN CORPUSCULAR VOLUME 90.5 fl (80.0-96.0); MONO # 0.6 10^3/uL (0.0-0.8); MONO % 9.5 % (0.0-5.0); NEUTROPHILS # 3.6 10^3/uL (1.8-7.7); NEUTROPHILS % 63.1 % (36.0-66.0); PLATELET COUNT, AUTOMATED 194 10^3/uL (150-450); RED BLOOD COUNT 4.95 10^6/uL (4.00-5.40); WHITE BLOOD COUNT 5.8 10^3/uL (4.0-10.0)
[2018-09-12 11:40] LABS: ALBUMIN 3.7 GM/DL (3.2-5.2); BILIRUBIN,TOTAL 0.5 MG/DL (0.2-1.0); CREATININE FOR GFR 1.1 MG/DL (0.55-1.30); GLOMERULAR FILTRATION RATE 55.5 (>51); POTASSIUM SERUM 4.3 MEQ/L (3.5-5.1); TOTAL PROTEIN 7.6 GM/DL (6.4-8.2)
== END ==
LOC: M LAB 10:28
PROVIDERS: ATTEND Family Medicine
DX: R10.13 Epigastric pain (principal)

== ENCOUNTER → 2018-10-04 | Outpatient (CLI) | payer OTHER ==
[~2018-10-04] MED LIST changes: +GASTROGRAFIN SOLUTION 30ML (Q9963) As Ordered ONE; +ISOVUE-370 76% 100ML VIAL (Q9967) As Ordered ONE
--- NOTE | 2018-10-04 19:13 | REP ---
CT of the abdomen and pelvis with IV and oral contrast for postprandial epigastric pain and bloating. The patient has history of duodenitis. The patient has a cholecystectomy. There are no comparison studies. The visualized lung shepherd are unremarkable. The hepatic parenchyma is less dense than the spleen compatible with hepato steatosis. There are no hepatic masses. There are surgical clips in the gallbladder fossa. The pancreas and spleen are normal size and unremarkable. No CT evidence of duodenal inflammation is identified. The adrenals are unremarkable. The kidneys are unremarkable. The abdominal aorta is unremarkable. There is no periaortic adenopathy or mass. There is no bowel distension or obstruction. The mesentery is unremarkable. Pelvis: The terminal ileum is unremarkable. The appendix is unremarkable. There is a hysterectomy. Vaginal cuff and adnexa are unremarkable. There is no ascites or adenopathy. The bladder is nondistended and cannot be further evaluated. Impression: Hepato steatosis. Cholecystectomy. Hysterectomy. There are no inflammatory changes in the mesentery. No ascites. Terminal ileum is unremarkable. Otherwise, negative CT of the abdomen pelvis. Electronically Signed by Wilmer Martin MD 10/04/2018 07:05 P
== END ==
LOC: M RAD 15:01
PROVIDERS: ATTEND Family Medicine
DX: K76.0 Fatty (change of) liver, not elsewhere classified (principal); Z90.49 Acquired absence of other specified parts of digestive tract; Z90.79 Acquired absence of other genital organ(s)
CPT/HCPCS: 74177; Q9963; Q9967

== ENCOUNTER → 2018-12-05 | Outpatient (REF) ==
[~2018-12-05] MED LIST changes: -GASTROGRAFIN SOLUTION 30ML (Q9963) As Ordered ONE; -ISOVUE-370 76% 100ML VIAL (Q9967) As Ordered ONE
[2019-01-29 12:40] LABS: HEMATOCRIT 43.6 % (36.0-47.0); HEMOGLOBIN 13.6 g/dl (12.0-15.5); RED BLOOD COUNT 4.82 10^6/uL (4.00-5.40); WHITE BLOOD COUNT 4.9 10^3/uL (4.0-10.0)
[2019-01-29 12:41] LABS: LYMPH % 36.7 % (24.0-44.0); MEAN CORPUSCULAR HEMOGLOBIN 28.2 pg (27.0-33.0); MEAN CORPUSCULAR HGB CONC 31.2 g/dl (32.0-36.5); MEAN CORPUSCULAR VOLUME 90.5 fl (80.0-96.0); NEUTROPHILS % 53.5 % (36.0-66.0); PLATELET COUNT, AUTOMATED 182 10^3/uL (150-450)
[2019-01-29 12:42] LABS: BASO % 0.2 % (0.0-1.0); LYMPH # 1.8 10^3/uL (1.5-5.0); MONO # 0.5 10^3/uL (0.0-0.8); MONO % 9.2 % (0.0-5.0); NEUTROPHILS # 2.6 10^3/uL (1.5-8.5)
== END ==
LOC: M LAB REF 12:34
PROVIDERS: ATTEND Allergy & Immunology Allergy
DX: J45.30 Mild persistent asthma, uncomplicated (principal)

== ENCOUNTER → 2019-02-07 | Outpatient (CLI) | payer OTHER ==
[~2019-02-07] MED LIST changes: +PROHANCE 279.3MG/ML 15ML VIAL (A9576) As Ordered ONE; +PROHANCE 279.3MG/ML 5ML VIAL (A9576) As Ordered ONE
== END ==
LOC: M RAD 14:43
PROVIDERS: ATTEND Family Medicine
DX: Z53.29 Procedure and treatment not carried out because of patient's decision for other reasons (principal)

== ENCOUNTER → 2019-04-16 | Outpatient (CLI) | payer OTHER ==
[~2019-04-16] MED LIST changes: -PROHANCE 279.3MG/ML 15ML VIAL (A9576) As Ordered ONE; -PROHANCE 279.3MG/ML 5ML VIAL (A9576) As Ordered ONE
[2019-04-16 08:48] LABS: HEMOGLOBIN 14.4 g/dl (12.0-15.5); LYMPH # 1.4 10^3/uL (1.5-5.0); LYMPH % 23.3 % (24.0-44.0); MEAN CORPUSCULAR HEMOGLOBIN 28.1 pg (27.0-33.0); MEAN CORPUSCULAR HGB CONC 31.3 g/dl (32.0-36.5); MEAN CORPUSCULAR VOLUME 89.8 fl (80.0-96.0); MONO # 0.5 10^3/uL (0.0-0.8); PLATELET COUNT, AUTOMATED 175 10^3/uL (150-450); RED BLOOD COUNT 5.12 10^6/uL (4.00-5.40); WHITE BLOOD COUNT 5.9 10^3/uL (4.0-10.0)
[2019-04-16 09:25] LABS: ALBUMIN 3.6 GM/DL (3.2-5.2); BILIRUBIN,TOTAL 0.6 MG/DL (0.2-1.0); CREATININE FOR GFR 1.28 MG/DL (0.55-1.30); FREE T4 1.13 NG/DL (0.76-1.46); GLOMERULAR FILTRATION RATE 46.4 (>51); POTASSIUM SERUM 4.3 MEQ/L (3.5-5.1); THYROID STIMULATING HORMONE 0.949 uIU/ML (0.358-3.740); TOTAL PROTEIN 7.7 GM/DL (6.4-8.2)
== END ==
LOC: M LAB 07:23
PROVIDERS: ATTEND Family Medicine
DX: I10 Essential (primary) hypertension (principal); D51.9 Vitamin B12 deficiency anemia, unspecified; E78.2 Mixed hyperlipidemia

== ENCOUNTER → 2019-04-16 | Outpatient (CLI) | payer OTHER ==
[2019-04-16 08:48] LABS: HEMATOCRIT 45.1 % (36.0-47.0); HEMOGLOBIN 14.3 g/dl (12.0-15.5); MEAN CORPUSCULAR HEMOGLOBIN 28.3 pg (27.0-33.0); MEAN CORPUSCULAR HGB CONC 31.7 g/dl (32.0-36.5); MEAN CORPUSCULAR VOLUME 89.3 fl (80.0-96.0); PLATELET COUNT, AUTOMATED 182 10^3/uL (150-450); RED BLOOD COUNT 5.05 10^6/uL (4.00-5.40); WHITE BLOOD COUNT 6.1 10^3/uL (4.0-10.0)
[2019-04-16 09:18] LABS: INR 1.02; PROTHROMBIN TIME 13.1 SECONDS (11.8-14.0)
[2019-04-16 09:27] LABS: ALBUMIN 3.5 GM/DL (3.2-5.2); BILIRUBIN,TOTAL 0.6 MG/DL (0.2-1.0); CHOLESTEROL RISK RATIO 4.823 (<5); CREATININE FOR GFR 1.25 MG/DL (0.55-1.30); GLOMERULAR FILTRATION RATE 47.7 (>51); POTASSIUM SERUM 4.3 MEQ/L (3.5-5.1); THYROID STIMULATING HORMONE 0.932 uIU/ML (0.358-3.740); TOTAL PROTEIN 7.3 GM/DL (6.4-8.2)
[2019-04-16 09:38] LABS: FOLATE 10.5 NG/ML; TOTAL 25(OH) VITAMIN D 31.6 NG/ML (30.0-100.0)
[2019-04-16 11:32] LABS: HEMOGLOBIN A1c 5.6 %
== END ==
LOC: M LAB 07:25
PROVIDERS: ATTEND Surgery
DX: E66.01 Morbid (severe) obesity due to excess calories (principal); Z68.41 Body mass index [BMI] 40.0-44.9, adult; Z71.3 Dietary counseling and surveillance

== ENCOUNTER → 2019-08-14 | Outpatient (CLI) | payer OTHER ==
--- NOTE | 2019-08-15 02:28 | REP ---
Clinical: Lower back pain. Technique: AP, lateral, flexion/extension, bilateral oblique and coned-down views of the lumbosacral spine. Findings: Alignment and lordosis maintained. No acute fracture / compression injury or subluxation is appreciated. Generalized osteopenia noted. Early moderate multilevel degenerative changes include endplate sclerosis, marginal spurring and osteophytosis as well as minimal disc space narrowing and hypertrophic facet changes. Findings most pronounced at L4-5 and T12-L1. No acute spondylolysis or spondylolisthesis. Impression: Osteopenia and moderate multilevel degenerative changes. No acute fracture / compression injury or subluxation. Electronically Signed by Arturo Hilario MD 08/15/2019 02:20 A
--- NOTE | 2019-08-15 02:30 | REP ---
Clinical: Right ankle pain . Technique: AP, lateral, bilateral oblique views. Findings: Mild age-related degenerative changes primarily at the medial malleolus suggest possible old subtle injury. No acute fracture or dislocation. Skeletal structures and joint spaces are intact and normal. Ankle mortise appears stable. No subcutaneous emphysema or radiodense foreign body. Impression: Age-appropriate right ankle radiograph series. Electronically Signed by Arturo Hilario MD 08/15/2019 02:21 A
--- NOTE | 2019-08-15 02:41 | REP ---
Clinical: Foot pain. Technique: AP, lateral, bilateral oblique views of the right foot. Findings: Moderate generalized arthritic changes primarily involving the tarsal, tarsometatarsal, and first toe joints. Findings include subchondral sclerosis with elements of joint space narrowing. Subtle spurring at the first metatarsophalangeal joint with hallux valgus deformity noted. No acute fracture or dislocation. Impression: Moderate generalized arthritic changes. Hallux valgus deformity. Electronically Signed by Arturo Hilario MD 08/15/2019 02:31 A
== END ==
LOC: M WUC 10:51
PROVIDERS: ATTEND Family Medicine
DX: M51.37 Other intervertebral disc degeneration, lumbosacral region (principal); M85.88 Other specified disorders of bone density and structure, other site; M19.071 Primary osteoarthritis, right ankle and foot; M20.11 Hallux valgus (acquired), right foot; M25.571 Pain in right ankle and joints of right foot

== ENCOUNTER → 2019-09-06 | Outpatient (CLI) | payer OTHER ==
--- NOTE | 2019-09-12 09:42 | DEXA ---
AP SPINE L1 - L4 1.010 -1.5 -0.8 LT FEMUR TOTAL 0.878 -1.0 -0.4 LT NECK 0.754 -2.0 -1.1 RT FEMUR TOTAL 0.816 -1.5 -0.9 RT NECK 0.742 -2.1 -1.2 TOTAL BODY TOTAL OTHER COMMENTS: There is low bone density of the spine and hips. FOLLOW-UP: Recommendation for the next bone density exam: 2 years. HARMONY
== END ==
LOC: M WHC 12:49
PROVIDERS: ATTEND Family Medicine
DX: M84.88 Other disorders of continuity of bone, other site (principal); M85.851 Other specified disorders of bone density and structure, right thigh; M85.852 Other specified disorders of bone density and structure, left thigh

== ENCOUNTER → 2020-02-06 | Outpatient (REF) | payer OTHER ==
[~2020-02-06] MED LIST changes: -AMLO10TA5 PO; +AMLO1TAB24 PO; +AMLO1TAB25 PO; -AMLO5TAB6 PO
[2020-02-06 12:33] LABS: C REACTIVE PROTEIN QUANTITATIV 1.03 MG/DL (0.00-0.30); RHEUMATOID FACTOR QUANT < 10.0 IU/ML (<15.0); URIC ACID 4.6 MG/DL (2.6-6.0)
[2020-02-11 16:13] LABS: CYCLIC CITRULLINATED PEPTIDE 10 units (0-19); HLA-B27 Negative (.)
== END ==
LOC: M SFHCRHEU 09:49
PROVIDERS: ATTEND Internal Medicine
DX: M53.3 Sacrococcygeal disorders, not elsewhere classified (principal); M25.571 Pain in right ankle and joints of right foot

== ENCOUNTER → 2020-02-20 | Outpatient (CLI) | payer OTHER ==
[2020-02-20 12:34] LABS: BASO % 0.2 % (0.0-1.0); HEMATOCRIT 43.4 % (36.0-47.0); HEMOGLOBIN 13.4 g/dl (12.0-15.5); LYMPH # 1.4 10^3/uL (1.5-5.0); LYMPH % 22.4 % (24.0-44.0); MEAN CORPUSCULAR HEMOGLOBIN 28.3 pg (27.0-33.0); MEAN CORPUSCULAR HGB CONC 30.9 g/dl (32.0-36.5); MEAN CORPUSCULAR VOLUME 91.6 fl (80.0-96.0); MONO # 0.4 10^3/uL (0.0-0.8); MONO % 6.9 % (0.0-5.0); NEUTROPHILS # 4.5 10^3/uL (1.5-8.5); NEUTROPHILS % 69.9 % (36.0-66.0); PLATELET COUNT, AUTOMATED 165 10^3/uL (150-450); RED BLOOD COUNT 4.74 10^6/uL (4.00-5.40); WHITE BLOOD COUNT 6.4 10^3/uL (4.0-10.0)
[2020-02-20 12:40] LABS: APPEARANCE, URINE CLEAR (CLEAR); BACTERIA, URINE AUTO NEGATIVE (NEGATIVE); BILIRUBIN, URINE AUTO NEGATIVE (NEGATIVE); BLOOD, URINE BLOOD NEGATIVE (NEGATIVE); COLOR, URINE YELLOW (YELLOW); GLUCOSE, URINE (UA) AUTO NEGATIVE (NEGATIVE); KETONE, URINE AUTO NEGATIVE (NEGATIVE); LEUKOCYTE ESTERASE, URINE AUTO NEGATIVE (NEGATIVE); MUCUS, URINE SMALL (NEGATIVE); NITRITE, URINE AUTO NEGATIVE (NEGATIVE); PROTEIN, URINE AUTO NEGATIVE (NEGATIVE); RBC, URINE AUTO 1 /HPF (0-3); SPECIFIC GRAVITY URINE AUTO 1.024 (1.002-1.035); SQUAMOUS EPITHELIAL CELL UR AU 1 /HPF (0-6); WBC, URINE AUTO 1 /HPF (0-3)
[2020-02-20 14:14] LABS: HEMOGLOBIN A1c 5.4 %
[2020-02-20 17:15] LABS: ALT/SGPT 37 U/L (12-78); BILIRUBIN,TOTAL 0.5 MG/DL (0.2-1.0); BLOOD UREA NITROGEN 20 MG/DL (7-18); CALCIUM LEVEL 9.2 MG/DL (8.5-10.1); CARBON DIOXIDE LEVEL 28 MEQ/L (21-32); CHLORIDE LEVEL 107 MEQ/L (98-107); CREATININE FOR GFR 1.06 MG/DL (0.55-1.30); GLOMERULAR FILTRATION RATE 57.7 (>51); GLUCOSE, FASTING 79 MG/DL (70-100); POTASSIUM SERUM 4.6 MEQ/L (3.5-5.1); SODIUM LEVEL 141 MEQ/L (136-145)
[2020-02-20 17:16] LABS: ALBUMIN 3.8 GM/DL (3.2-5.2); CHOLESTEROL LEVEL 155 MG/DL (<200); CHOLESTEROL RISK RATIO 3.875 (<5); FERRITIN 78 NG/ML (8-252); HDL CHOLESTEROL 40 MG/DL (>40); LDL CHOLESTEROL 96 MG/DL (<100); NON-HDL-C 115 MG/DL; TOTAL 25(OH) VITAMIN D 30.4 NG/ML (30.0-100.0); TOTAL PROTEIN 7.4 GM/DL (6.4-8.2); TRIGLYCERIDES LEVEL 96 MG/DL (<150); VITAMIN B12 LEVEL 490 PG/ML (247-911)
[2020-02-21 13:16] LABS: FOLATE > 24.0 NG/ML (>5.4)
== END ==
LOC: M LAB 11:30
PROVIDERS: ATTEND Surgery
DX: Z01.818 Encounter for other preprocedural examination (principal)

== ENCOUNTER → 2020-02-20 | Outpatient (CLI) | payer OTHER ==
[2020-02-20 12:35] LABS: BASO % 0.2 % (0.0-1.0); HEMOGLOBIN 13.9 g/dl (12.0-15.5); LYMPH # 1.5 10^3/uL (1.5-5.0); LYMPH % 22.9 % (24.0-44.0); MEAN CORPUSCULAR HEMOGLOBIN 28.8 pg (27.0-33.0); MEAN CORPUSCULAR HGB CONC 31.6 g/dl (32.0-36.5); MEAN CORPUSCULAR VOLUME 91.3 fl (80.0-96.0); MONO # 0.5 10^3/uL (0.0-0.8); MONO % 7.8 % (0.0-5.0); NEUTROPHILS # 4.5 10^3/uL (1.5-8.5); NEUTROPHILS % 68.6 % (36.0-66.0); PLATELET COUNT, AUTOMATED 147 10^3/uL (150-450); RED BLOOD COUNT 4.82 10^6/uL (4.00-5.40); WHITE BLOOD COUNT 6.5 10^3/uL (4.0-10.0)
[2020-02-20 13:01] LABS: ALBUMIN 3.8 GM/DL (3.2-5.2); BILIRUBIN,TOTAL 0.5 MG/DL (0.2-1.0); CALCIUM LEVEL 9.1 MG/DL (8.5-10.1); CHOLESTEROL RISK RATIO 3.78 (<5); CREATININE FOR GFR 1.07 MG/DL (0.55-1.30); GLOMERULAR FILTRATION RATE 57.1 (>51); TOTAL PROTEIN 7.3 GM/DL (6.4-8.2)
== END ==
LOC: M LAB 11:26
PROVIDERS: ATTEND Family Medicine
DX: D51.9 Vitamin B12 deficiency anemia, unspecified (principal); I10 Essential (primary) hypertension; E78.2 Mixed hyperlipidemia

== ENCOUNTER → 2020-02-28 | Outpatient (CLI) | payer OTHER ==
--- NOTE | 2020-02-28 15:07 | REP ---
INDICATION: SACROILLIAC PAIN. COMPARISON: None. TECHNIQUE: Four views of the bilateral sacroiliac joints. FINDINGS: The sacroiliac joints appear relatively symmetric with mild age-related changes including mild periarticular sclerosis and very minimal inferior spurring. No evidence for articular fusion or periarticular lytic/cystic changes. IMPRESSION: Mild symmetric age-related changes noted bilaterally. <Electronically signed by Arturo Hilario > 02/28/20 [id number]
== END ==
LOC: M RAD 12:59
PROVIDERS: ATTEND Internal Medicine
DX: M53.3 Sacrococcygeal disorders, not elsewhere classified (principal)

== ENCOUNTER 2020-03-03 15:15 | Outpatient (RCR) | payer OTHER | END 2020-03-10 | LOC: M PT 15:15 | PROVIDERS: ATTEND Internal Medicine | DX: M54.5 Low back pain (principal); M89.8X1 Other specified disorders of bone, shoulder ==

== ENCOUNTER → 2020-03-18 | Outpatient (CLI) | payer OTHER ==
--- NOTE | 2020-03-18 09:17 | REPMRS ---
Patient History The patient states she had a clinical breast exam in February 2020. Patient is postmenopausal. Family history of breast cancer at age 40 in mother, unknown cancer at age 87 in father. Benign US guided breast biopsy of the left breast, August 15, 2018. Benign excisional biopsy of the right breast, August 02, 2014. Digital Woman Screen Mammo: March 18, 2020 - Exam #: [id number] Bilateral CC and MLO view(s) were taken. Technologist: Yolande Vail, Technologist Prior study comparison: August 15, 2018, left breast digital mammo diagnostic unilateral, performed at [facility]. July 20, 2018, left breast digital mammo diagnostic unilateral, performed at [facility]. June 28, 2018, bilateral digital mammo screening bilat, performed at [facility]. September 09, 2015, bilateral digital woman screen mammo, performed at [facility]. FINDINGS: The breast tissue is almost entirely fat. The Volpara volumetric breast density category is: A. There is a needle biopsy clip adjacent to a stable nodule in the upper outer quadrant on the left. There has been no change in the appearance of the mammogram from the prior studies. There is no interval development of dominant mass, architectural distortion, or grouped microcalcification typical of malignancy. 3-D tomosynthesis shows no additional findings. Assessment: BI-RADS/ACR category 2 mammogram. Benign Findings. Recommendation Breast MRI of both breasts in 6 months. Routine screening mammogram of both breasts in 1 year (for women over age 40). This patient's [facility] Lifetime Breast Cancer RIsk is estimated at 21.2 %. Annual screening Breast MRI scanniing is recommended for patient's whose lifetime risk assessment is over 20%. This mammogram was interpreted with the aid of an FDA-approved computer-aided dectection system. Electronically Signed By: Hermes Ferrera MD 03/18/20 0916
== END ==
LOC: M WHC 06:36
PROVIDERS: ATTEND Family Medicine
DX: Z12.31 Encounter for screening mammogram for malignant neoplasm of breast (principal); Z80.3 Family history of malignant neoplasm of breast

== ENCOUNTER → 2020-03-18 | Outpatient (CLI) | payer OTHER ==
--- NOTE | 2020-03-18 19:17 | REPVR ---
PROCEDURE INFORMATION: Exam: MR Pelvis Without Contrast, Sacrum Exam date and time: 03/18/2020 6:44 PM Age: 55 years old Clinical indication: Pelvic pain and other: Sacroiliac pain; Additional info: Low back pain, sacroiliac pain TECHNIQUE: Imaging protocol: Magnetic resonance images of the pelvis without intravenous contrast. COMPARISON: CT ABD PELVIS WITH CONTRAST 10/04/2018 4:36 PM FINDINGS: Overall normal alignment of the SI joints. No abnormal volume of joint fluid and no subchondral cortical erosion. No widening of the sacral neural foramina . No concerning linear abnormality consistent with stress fracture and no concerning focal marrow process to suggest bone marrow edema. Artifactual increased T2 signal in the right ilium on series 1001 and left ilium on series 1201 are associated with external artifacts and felt to not be real. On the sagittal fluid sensitive images there are no marrow abnormalities. No soft tissue mass or fluid collection. No sciatic notch lesion or asymmetric muscle atrophy. IMPRESSION: Unremarkable MRI of the SI joints. Electronically signed by: Chucky Gonzalez On 03/18/2020 19:17:24 PM
--- NOTE | 2020-03-18 19:20 | REPVR ---
PROCEDURE INFORMATION: Exam: MR Lumbar Spine Without Contrast. Exam date and time: 03/18/2020 6:44 PM Age: 55 years old Clinical indication: Low back pain; Additional info: Low back pain, sacroiliac pain TECHNIQUE: Imaging protocol: Multiplanar magnetic resonance images of the lumbar spine without intravenous contrast. COMPARISON: CR SPINE LS W/BENDING 08/14/2019 11:05 AM FINDINGS: Lumbar vertebrae show no segmental malalignment. Vertebral body height, morphology and marrow signal are unremarkable. Benign vertebral body hemangioma L3 Degenerative disc height and T2 signal loss L4-L5 and to a lesser extent L2-L3 and L1-L2, with reactive endplate changes. Conus terminates at the L1-L2 level with no abnormality in the conus or distal cord. Normal dependent layering of cauda equina nerve roots. T12-L1: No canal stenosis or foraminal narrowing. L1-2: Minimal disc bulge . Asymmetric left neural foraminal narrowing secondary to asymmetric left facet arthropathy L2-3: Minimal disc bulge. No canal stenosis or foraminal narrowing. L3-4: No canal stenosis or foraminal narrowing. L4-5: Diffuse disc bulge with hypertrophic ligamentum flavum arthropathy. No significant canal stenosis. Mild inferior recess stenosis canal stenosis or foraminal narrowing. L5-S1: No canal stenosis or foraminal narrowing. No enlarged lymph nodes or prevertebral soft tissue abnormality. Imaged distal abdominal aorta is normal in caliber. IMPRESSION: Mild mid and lower lumbar degenerative spondylosis without evidence of nancy neural compression and with no evidence of an acute disc extrusion or destructive process. Electronically signed by: Chucky Gonzalez On 03/18/2020 19:20:18 PM
== END ==
LOC: M RAD 17:07
PROVIDERS: ATTEND Internal Medicine
DX: M51.26 Other intervertebral disc displacement, lumbar region (principal); M53.3 Sacrococcygeal disorders, not elsewhere classified; M47.896 Other spondylosis, lumbar region

== ENCOUNTER 2020-04-08 07:45 | Outpatient (RCR) | payer OTHER | END 2020-04-10 | LOC: M PT 07:45 | PROVIDERS: ATTEND Internal Medicine | DX: Z51.89 Encounter for other specified aftercare (principal); M54.5 Low back pain; M89.8X1 Other specified disorders of bone, shoulder ==

== ENCOUNTER 2020-04-14 07:45 | Outpatient (RCR) | payer OTHER | END 2020-05-11 | LOC: M PT 07:45 | PROVIDERS: ATTEND Internal Medicine | DX: Z51.89 Encounter for other specified aftercare (principal); M54.5 Low back pain; M89.8X1 Other specified disorders of bone, shoulder ==

== ENCOUNTER → 2020-05-05 | Outpatient (CLI) | payer OTHER ==
--- NOTE | 2020-05-06 17:54 | SLEEPCENT ---
DATE: 05/05/2020 ORDERED BY: Jo Ann Siddiqui Nocturnal polysomnography was performed for retitration of pressure therapy in this patient with a history of obstructive sleep apnea syndrome, utilizing continuous positive airway pressure (CPAP) since 2008. For testing, a ResMed AirFit N20 nasal mask of small size was used. An initial pressure of 8 cm of water was applied to the circuit, and the lights were extinguished. There was 7 hours and 45 minutes of data reviewed. There was 427 minutes of sleep identified. Sleep latency was normal at 8 minutes. REM sleep was delayed at 280 minutes. Sleep architecture initially shows some mild poor progression. Improvement was seen with optimal pressure therapy. Overall sleep efficiency was 92.6%. The patient's electrocardiogram showed a sinus rhythm with an average heart rate of 68 beats per minute. Rate ranged 60-85. EEG shows some mild coarsening in background. No focal events were identified, and there were normal waveforms for wake and sleep. Respiratory events were best palliated with CPAP at a pressure of +9, with which pressure the patient slept through REM without respiratory event or oxygen desaturation. IMPRESSION: Obstructive sleep apnea syndrome. RECOMMENDATION: Nightly use of pressure therapy, 9 cm of water.
== END ==
LOC: M SLEEP 20:00
PROVIDERS: ATTEND Nurse Practitioner Family
DX: G47.33 Obstructive sleep apnea (adult) (pediatric) (principal)

== ENCOUNTER 2020-06-11 07:21 | Emergency (ER) | payer OTHER ==
[~2020-06-11] VITALS: Ht 160 cm; Wt 110.5 kg
[2020-06-11] MEDS ORDERED: OMEP-221 (07:33)
--- NOTE | 2020-06-11 08:25 | REP ---
INDICATION: L knee pain s/p fall COMPARISON: None. TECHNIQUE: AP, lateral, bilateral oblique and sunrise views. FINDINGS: Mild tricompartmental degenerative changes are appreciated. No acute fracture or dislocation. No obvious effusion. IMPRESSION: Mild degenerative changes. No obvious acute fracture or dislocation. <Electronically signed by Arturo Hilario > 06/11/20 [id number]
[2020-06-11 08:35] VITALS: BP 137/76
== END 2020-06-11 09:18 | disposition home or self-care (01) ==
LOC: M ED 07:21
DX: S83.92XA Sprain of unspecified site of left knee, initial encounter (principal); W00.0XXA Fall on same level due to ice and snow, initial encounter; Y92.89 Other specified places as the place of occurrence of the external cause; Y99.0 Civilian activity done for income or pay; I10 Essential (primary) hypertension; K21.9 Gastro-esophageal reflux disease without esophagitis; G47.33 Obstructive sleep apnea (adult) (pediatric); M81.0 Age-related osteoporosis without current pathological fracture; Z99.89 Dependence on other enabling machines and devices; Z79.899 Other long term (current) drug therapy; Z88.1 Allergy status to other antibiotic agents; Z88.8 Allergy status to other drugs, medicaments and biological substances; Z91.048 Other nonmedicinal substance allergy status

== ENCOUNTER → 2020-07-04 | Outpatient (CLI) | payer OTHER ==
[~2020-07-04] MED LIST changes: +OMEP-221
--- NOTE | 2020-07-07 13:35 | REP ---
INDICATION: HIP PAIN. COMPARISON: Comparison is made with findings of MRI study of the pelvis from March 18, [address] abdomen pelvis images from October 04, 2018.. TECHNIQUE: AP and frogleg views of both hips are presented. Bilateral exam. FINDINGS: There is diffuse osteopenia. Femoral heads are smooth and rounded hip joint spaces are preserved bilaterally. There is mild tendon insertion site spurring on the greater trochanters bilaterally and the left lesser trochanter. Periarticular soft tissues are unremarkable. Visualized bowel gas pattern is normal. Sacrum and SI joints and symphysis pubis appear intact. IMPRESSION: Mild tendon insertion site spurring. No acute bony abnormality. Diffuse osteopenia. <Electronically signed by Hermes Ferrera > 07/07/20 [id number]
== END ==
LOC: M SOG 15:56
PROVIDERS: ATTEND Orthopaedic Surgery Sports Medicine
DX: M16.0 Bilateral primary osteoarthritis of hip (principal); M85.859 Other specified disorders of bone density and structure, unspecified thigh

== ENCOUNTER → 2020-07-15 | Outpatient (CLI) | payer OTHER ==
[~2020-07-15] MED LIST changes: +ISOVUE-300 61% 50ML VIAL As Ordered ONE; +ISOVUE-370 76% 100ML VIAL As Ordered ONE; +LIDOCAINE 1% MDV 20ML VIAL As Ordered ONE; +methylPREDNISolone SUSP 40MG/ML 1ML VIAL (DEPO MEDROL) As Ordered ONE
--- NOTE | 2020-07-15 18:44 | REP ---
INDICATION: OA OF RT HIP. COMPARISON: None TECHNIQUE: The procedure was performed by NANCY Castillo, under the direct supervision of Dr. Mar. The benefits and risks of the procedure were explained to the patient, and an informed consent was obtained. Directly prior to the start of the procedure, a formal time-out was completed in the procedure room. The right femoral neck joint space was localized using fluoroscopic guidance. The skin was prepped and draped in a sterile fashion. Approximately 5 mL of 1% Lidocaine 10 mg/ml was used as a local anesthetic. Using fluoroscopic guidance, a #22 gauge spinal needle was inserted and advanced into the right femoral neck joint space. Approximately 1 mL of Isovue 300 was injected to verify placement. Seven mL of a solution containing 5 mL 1% lidocaine 10 mg/ml and 2 mL Depo-Medrol 40 milligrams/milliliter was injected into the joint space. The needle was removed and hemostasis was achieved. FINDINGS: The patient tolerated the procedure well and there were no immediate complications. IMPRESSION: 1. Fluoroscopic guided intra-articular pain injection of the right hip.. 0.1 minutes of fluoroscopy time was utilized for this procedure. Some fluoroscopic images are performed with last image hold technology. These images require no additional radiation. <Electronically signed by Christen Ascencio > 07/15/20 [id number] <Electronically signed by Wilmer Mar > 07/15/20 [id number]
== END ==
LOC: M RADPRO 12:30
PROVIDERS: ATTEND Orthopaedic Surgery Sports Medicine
DX: M16.0 Bilateral primary osteoarthritis of hip (principal)
CPT/HCPCS: 20610; 77002; J1030; Q9967

== ENCOUNTER → 2020-10-30 | Outpatient (CLI) | payer OTHER ==
[~2020-10-30] MED LIST changes: -CEFD1CAP8 PO; +CEFD300C41 PO; +GABA-283 PO; -GABA-845 PO; -ISOVUE-300 61% 50ML VIAL As Ordered ONE; -ISOVUE-370 76% 100ML VIAL As Ordered ONE; -LIDOCAINE 1% MDV 20ML VIAL As Ordered ONE; -OMEP-221; +OMEP40CA5; -methylPREDNISolone SUSP 40MG/ML 1ML VIAL (DEPO MEDROL) As Ordered ONE
== END ==
LOC: M SOG 09:32
PROVIDERS: ATTEND Orthopaedic Surgery Adult Reconstructive Orthopaedic Surgery
DX: M25.562 Pain in left knee (principal); M25.561 Pain in right knee; M16.0 Bilateral primary osteoarthritis of hip

== ENCOUNTER → 2020-12-31 | Outpatient (REF) | payer OTHER ==
[~2020-12-31] MED LIST changes: +CEFD1CAP8 PO; -CEFD300C41 PO; +OMEP-221; -OMEP40CA5
[2020-12-31 11:36] LABS: EOS % 0.2 % (0.0-3.0); HEMATOCRIT 44.4 % (36.0-47.0); HEMOGLOBIN 14.1 g/dl (12.0-15.5); LYMPH # 1.8 10^3/uL (1.5-5.0); LYMPH % 33.6 % (24.0-44.0); MEAN CORPUSCULAR HEMOGLOBIN 28.3 pg (27.0-33.0); MEAN CORPUSCULAR HGB CONC 31.8 g/dl (32.0-36.5); MONO # 0.6 10^3/uL (0.0-0.8); MONO % 11.5 % (2.0-8.0); NEUTROPHILS # 2.9 10^3/uL (1.5-8.5); NEUTROPHILS % 54.3 % (36.0-66.0); PLATELET COUNT, AUTOMATED 172 10^3/uL (150-450); RED BLOOD COUNT 4.99 10^6/uL (4.00-5.40); WHITE BLOOD COUNT 5.3 10^3/uL (4.0-10.0)
[2020-12-31 12:09] LABS: ALBUMIN 3.4 GM/DL (3.2-5.2); BILIRUBIN,TOTAL 0.6 MG/DL (0.2-1.0); CALCIUM LEVEL 9.1 MG/DL (8.5-10.1); CHOLESTEROL RISK RATIO 5.32 (<5); CREATININE FOR GFR 1.21 MG/DL (0.55-1.30); FREE T4 1.05 NG/DL (0.76-1.46); GLOMERULAR FILTRATION RATE 49.4 (>51); THYROID STIMULATING HORMONE 1.76 uIU/ML (0.358-3.740); TOTAL PROTEIN 7.3 GM/DL (6.4-8.2)
[2020-12-31 16:14] LABS: HEMOGLOBIN A1c 6.6 %
== END ==
LOC: M LAB REF 11:19
PROVIDERS: ATTEND Family Medicine
DX: I10 Essential (primary) hypertension (principal); E78.2 Mixed hyperlipidemia; D51.9 Vitamin B12 deficiency anemia, unspecified

== ENCOUNTER → 2021-03-10 | Outpatient (REF) | payer OTHER ==
[~2021-03-10] MED LIST changes: -CEFD1CAP8 PO; +CEFD300C41 PO; -OMEP-221; +OMEP40CA5
== END ==
LOC: M LAB REF 21:00
PROVIDERS: ATTEND Family Medicine
DX: J06.9 Acute upper respiratory infection, unspecified (principal)

== ENCOUNTER → 2021-05-05 | Outpatient (CLI) | payer OTHER ==
[2021-05-05 08:37] LABS: HEMATOCRIT 41.7 % (36.0-47.0); HEMOGLOBIN 13.5 g/dl (12.0-15.5); LYMPH # 1.5 10^3/uL (1.5-5.0); LYMPH % 29.6 % (24.0-44.0); MEAN CORPUSCULAR HEMOGLOBIN 28.5 pg (27.0-33.0); MEAN CORPUSCULAR HGB CONC 32.4 g/dl (32.0-36.5); MEAN CORPUSCULAR VOLUME 88.2 fl (80.0-96.0); MONO # 0.5 10^3/uL (0.0-0.8); MONO % 9.8 % (2.0-8.0); NEUTROPHILS % 60.4 % (36.0-66.0); PLATELET COUNT, AUTOMATED 179 10^3/uL (150-450); RED BLOOD COUNT 4.73 10^6/uL (4.00-5.40); WHITE BLOOD COUNT 4.9 10^3/uL (4.0-10.0)
[2021-05-05 09:12] LABS: HEMOGLOBIN A1c 5.4 %
[2021-05-05 09:15] LABS: ALBUMIN 3.3 GM/DL (3.2-5.2); BILIRUBIN,TOTAL 0.3 MG/DL (0.2-1.0); CALCIUM LEVEL 9.6 MG/DL (8.5-10.1); CHOLESTEROL RISK RATIO 4.5 (<5); CREATININE FOR GFR 1.21 MG/DL (0.55-1.30); FREE T4 1.02 NG/DL (0.76-1.46); GLOMERULAR FILTRATION RATE 49.2 (>51); POTASSIUM SERUM 4.1 MEQ/L (3.5-5.1); THYROID STIMULATING HORMONE 1.17 uIU/ML (0.358-3.740); TOTAL PROTEIN 7.4 GM/DL (6.4-8.2)
[2021-05-06 15:08] LABS: TESTOSTERONE FREE (DIRECT) 3.6 pg/mL (0.0-4.2); TESTOSTERONE TOTAL FOR T&D < 3.0 ng/dL (4-50)
== END ==
LOC: M LAB 07:24
PROVIDERS: ATTEND Family Medicine
DX: E11.9 Type 2 diabetes mellitus without complications (principal)

== ENCOUNTER → 2021-10-09 | Outpatient (REF) | payer OTHER ==
[2021-10-09 12:15] LABS: HEMOGLOBIN 14.4 g/dl (12.0-15.5); LYMPH # 1.5 10^3/uL (1.5-5.0); LYMPH % 28.8 % (24.0-44.0); MEAN CORPUSCULAR HGB CONC 31.3 g/dl (32.0-36.5); MEAN CORPUSCULAR VOLUME 92.6 fl (80.0-96.0); MONO # 0.5 10^3/uL (0.0-0.8); MONO % 8.9 % (2.0-8.0); NEUTROPHILS # 3.2 10^3/uL (1.5-8.5); NEUTROPHILS % 62.1 % (36.0-66.0); PLATELET COUNT, AUTOMATED 181 10^3/uL (150-450); RED BLOOD COUNT 4.97 10^6/uL (4.00-5.40); WHITE BLOOD COUNT 5.1 10^3/uL (4.0-10.0)
[2021-10-09 12:36] LABS: ALBUMIN 3.9 GM/DL (3.2-5.2); ALT/SGPT 59 U/L (12-78); BLOOD UREA NITROGEN 16 MG/DL (7-18); CALCIUM LEVEL 9.3 MG/DL (8.5-10.1); CARBON DIOXIDE LEVEL 32 MEQ/L (21-32); CHLORIDE LEVEL 107 MEQ/L (98-107); CREATININE FOR GFR 1.25 MG/DL (0.55-1.30); FERRITIN 88 NG/ML (8-252); GLOMERULAR FILTRATION RATE 47.4 (>51); GLUCOSE, FASTING 71 MG/DL (70-100); IRON (FE) 62 UG/DL (50-170); MAGNESIUM LEVEL 2.4 MG/DL (1.8-2.4); PHOSPHORUS LEVEL 3.6 MG/DL (2.5-4.9); POTASSIUM SERUM 4.3 MEQ/L (3.5-5.1); SODIUM LEVEL 143 MEQ/L (136-145); TOTAL IRON BINDING CAPACITY 258 UG/DL (250-450); TOTAL PROTEIN 7.4 GM/DL (6.4-8.2)
[2021-10-09 12:52] LABS: HEMOGLOBIN A1c 4.9 %
[2021-10-09 12:54] LABS: TOTAL 25(OH) VITAMIN D 93.3 NG/ML (30.0-100.0); VITAMIN B12 LEVEL > 2000 PG/ML (247-911)
== END ==
LOC: M LAB REF 11:40
PROVIDERS: ATTEND Surgery
DX: Z98.84 Bariatric surgery status (principal); K91.2 Postsurgical malabsorption, not elsewhere classified; Z86.39 Personal history of other endocrine, nutritional and metabolic disease; E55.9 Vitamin D deficiency, unspecified

== ENCOUNTER → 2022-02-16 | Outpatient (REF) | payer OTHER ==
[2022-02-16 12:54] LABS: HEMATOCRIT 41.5 % (36.0-47.0); HEMOGLOBIN 13.2 g/dl (12.0-15.5); LYMPH # 1.6 10^3/uL (1.5-5.0); LYMPH % 28.1 % (24.0-44.0); MEAN CORPUSCULAR HEMOGLOBIN 29.2 pg (27.0-33.0); MEAN CORPUSCULAR HGB CONC 31.8 g/dl (32.0-36.5); MEAN CORPUSCULAR VOLUME 91.8 fl (80.0-96.0); MONO # 0.4 10^3/uL (0.0-0.8); MONO % 7.6 % (2.0-8.0); NEUTROPHILS # 3.6 10^3/uL (1.5-8.5); NEUTROPHILS % 63.9 % (36.0-66.0); PLATELET COUNT, AUTOMATED 169 10^3/uL (150-450); RED BLOOD COUNT 4.52 10^6/uL (4.00-5.40); WHITE BLOOD COUNT 5.6 10^3/uL (4.0-10.0)
[2022-02-16 15:36] LABS: ALBUMIN 3.5 GM/DL (3.2-5.2); ALT/SGPT 27 U/L (12-78); BILIRUBIN,TOTAL 0.6 MG/DL (0.2-1.0); BLOOD UREA NITROGEN 13 MG/DL (7-18); CALCIUM LEVEL 9.3 MG/DL (8.5-10.1); CARBON DIOXIDE LEVEL 33 MEQ/L (21-32); CHLORIDE LEVEL 102 MEQ/L (98-107); CHOLESTEROL LEVEL 132 MG/DL (<200); CHOLESTEROL RISK RATIO 3.069 (<5); CREATININE FOR GFR 0.95 MG/DL (0.55-1.30); GLOMERULAR FILTRATION RATE > 60.0 (>51); GLUCOSE, FASTING 79 MG/DL (70-100); HDL CHOLESTEROL 43 MG/DL (>40); IRON (FE) 83 UG/DL (50-170); LDL CHOLESTEROL 69 MG/DL (<100); NON-HDL-C 89 MG/DL; PERCENT SATURATION 27.6 % (13.2-45.0); POTASSIUM SERUM 4.7 MEQ/L (3.5-5.1); SODIUM LEVEL 138 MEQ/L (136-145); TOTAL IRON BINDING CAPACITY 301 UG/DL (250-450); TOTAL PROTEIN 7.7 GM/DL (6.4-8.2); TRIGLYCERIDES LEVEL 100 MG/DL (<150)
[2022-02-16 16:01] LABS: VITAMIN B12 LEVEL 957 PG/ML
[2022-02-16 16:02] LABS: FOLATE > 24.0 NG/ML
[2022-02-16 21:07] LABS: HEMOGLOBIN A1c 4.9 %
== END ==
LOC: M LAB REF 12:24
PROVIDERS: ATTEND Family Medicine
DX: D51.9 Vitamin B12 deficiency anemia, unspecified (principal); E11.9 Type 2 diabetes mellitus without complications

== ENCOUNTER → 2022-03-26 | Outpatient (CLI) | payer OTHER ==
[2022-03-26 10:09] LABS: HEMATOCRIT 41.6 % (36.0-47.0); HEMOGLOBIN 13.1 g/dl (12.0-15.5); LYMPH # 1.5 10^3/uL (1.5-5.0); LYMPH % 34.5 % (24.0-44.0); MEAN CORPUSCULAR HEMOGLOBIN 29.2 pg (27.0-33.0); MEAN CORPUSCULAR HGB CONC 31.5 g/dl (32.0-36.5); MEAN CORPUSCULAR VOLUME 92.9 fl (80.0-96.0); MONO # 0.4 10^3/uL (0.0-0.8); MONO % 9.7 % (2.0-8.0); NEUTROPHILS # 2.4 10^3/uL (1.5-8.5); NEUTROPHILS % 55.6 % (36.0-66.0); PLATELET COUNT, AUTOMATED 147 10^3/uL (150-450); RED BLOOD COUNT 4.48 10^6/uL (4.00-5.40); WHITE BLOOD COUNT 4.2 10^3/uL (4.0-10.0)
[2022-03-26 10:20] LABS: INR 1.07; PROTHROMBIN TIME 14.1 SECONDS (12.5-14.5)
[2022-03-26 10:21] LABS: PARTIAL THROMBOPLASTIN TIME 33.8 SECONDS (24.8-34.2)
[2022-03-26 10:56] LABS: ALBUMIN 3.2 G/DL (3.2-5.2); ALKALINE PHOSPHATASE 78 U/L (46-116); ALT/SGPT 18 U/L (7.0-40); AST/SGOT 18 U/L (<34); BILIRUBIN,DIRECT 0.3 MG/DL (<0.4); BILIRUBIN,TOTAL 0.7 MG/DL (0.3-1.2); BLOOD UREA NITROGEN 12 MG/DL (9-23); CALCIUM LEVEL 8.8 MG/DL (8.5-10.1); CARBON DIOXIDE LEVEL 29 MMOL/L (20-31); CHLORIDE LEVEL 104 MMOL/L (98-107); CREATININE FOR GFR 0.93 MG/DL (0.55-1.30); GLOMERULAR FILTRATION RATE > 60.0 (>51); GLUCOSE, FASTING 77 MG/DL (60-100); SODIUM LEVEL 142 MMOL/L (136-145); TOTAL PROTEIN 6.8 G/DL (5.7-8.2)
[2022-03-26 11:32] LABS: HEPATITIS C VIRUS ABY INDEX 0.2 INDEX (<0.8)
== END ==
LOC: M LAB 08:30
PROVIDERS: ATTEND Internal Medicine Gastroenterology
DX: K75.81 Nonalcoholic steatohepatitis (NASH) (principal)

== ENCOUNTER → 2022-03-26 | Outpatient (CLI) | payer OTHER | LOC: M WHC 10:05 | PROVIDERS: ATTEND Family Medicine | DX: Z12.31 Encounter for screening mammogram for malignant neoplasm of breast (principal); Z13.820 Encounter for screening for osteoporosis; M85.88 Other specified disorders of bone density and structure, other site; M85.851 Other specified disorders of bone density and structure, right thigh; M85.852 Other specified disorders of bone density and structure, left thigh; Z80.3 Family history of malignant neoplasm of breast ==

== ENCOUNTER → 2022-03-26 | Outpatient (CLI) | payer OTHER ==
[2022-03-26 10:55] LABS: RHEUMATOID FACTOR QUANT 5.7 IU/ML (<14); TOTAL PROTEIN 6.9 GM/DL (6.4-8.2)
[2022-03-26 10:58] LABS: THYROID STIMULATING HORMONE 1.339 uIU/ML (0.55-4.78)
[2022-03-29 14:12] LABS: ALBUMIN 3.64 GM/DL (3.29-5.55); ALBUMIN % 52.7 % (55.8-66.1); ALPHA-1-GLOBULIN % 4.1 % (2.9-4.9); ALPHA-1-GLOBULINS 0.28 GM/DL (0.17-0.41); ALPHA-2-GLOBULINS 0.71 GM/DL (0.42-0.99); ALPHA-2-GLOBULINS % 10.3 % (7.1-11.8); BETA-1-GLOBULINS 0.35 GM/DL (0.28-0.60); BETA-1-GLOBULINS % 5.1 % (4.7-7.2); BETA-2-GLOBULINS 0.23 GM/DL (0.19-0.55); BETA-2-GLOBULINS % 3.3 % (3.2-6.5); GAMMA GLOBULIN % 24.5 % (11.1-18.8); GAMMA GLOBULINS 1.69 GM/DL (0.65-1.58)
[2022-04-04 16:07] LABS: ACETYLCHOLINE RCPTOR BINDING A < 0.03 nmol/L (0.00-0.24); ACETYLCHOLINE RCPTOR BLOCK AB 13 % (0-25); ANTI DS-DNA AB Negative (Negative); ANTINUCLEAR ANTIBODIES DIRECT Negative (Negative); SJOGREN'S ANTI SS-A 0.3 AI (0.0-0.9); SJOGREN'S ANTI SS-B <0.2 AI (0.0-0.9); VITAMIN B1 LEVEL WHOLE BLOOD 138.3 nmol/L (66.5-200.0); VITAMIN B6,PYRIDOXAL PHOSPHATE 7.3 ug/L (3.4-65.2); VITAMIN E(ALPHA TOCOPHEROL) 8.5 mg/L (7.0-25.1); VITAMIN E(GAMMA TOCOPHEROL) 0.9 mg/L (0.5-5.5)
== END ==
LOC: M LAB 08:22
PROVIDERS: ATTEND Psychiatry & Neurology Neurology
DX: R53.1 Weakness (principal)

== ENCOUNTER → 2022-04-21 | Outpatient (CLI) | payer OTHER ==
[~2022-04-21] MED LIST changes: +ALL10TAB3 PO; +AMPH1CAP14 PO; +B-1225002 SL; +CALCTAB89 PO; -OMEP40CA5; +OMEP40CA5 PO; +ONDA4TAB6 SL; +PROB250C PO; +TIZA4CAP PO; +TRUL0.5I SC; +VITMTA PO
== END ==
LOC: M RAD 08:25
PROVIDERS: ATTEND Internal Medicine Gastroenterology
DX: K75.81 Nonalcoholic steatohepatitis (NASH) (principal); R16.1 Splenomegaly, not elsewhere classified; Z90.49 Acquired absence of other specified parts of digestive tract

== ENCOUNTER → 2022-04-29 | Outpatient (CLI) | payer OTHER | LOC: M LABSMTC 09:36 | PROVIDERS: ATTEND Anesthesiology | DX: Z01.812 Encounter for preprocedural laboratory examination (principal); Z11.52 Encounter for screening for COVID-19 ==

== ENCOUNTER 2022-05-04 11:14 | Day surgery (SDC) | payer OTHER ==
[~2022-05-04] VITALS: Ht 162.6 cm; Wt 76.2 kg
[~2022-05-04 11:14] MED LIST changes: +NS 1,000 ML IV ONE
[2022-05-04] MEDS ORDERED: LIDOCAINE 2% 100MG/5ML SDV (FOR ANES.) As Ordered ONE (13:07)
[2022-05-04] MEDS ORDERED: propofoL 200 MG/20 ML VIAL As Ordered ONE (13:07)
[2022-05-04 14:08] VITALS: BP 123/66
== END 2022-05-04 14:17 | disposition home or self-care (01) ==
LOC: M OPP 11:14
PROVIDERS: ATTEND Internal Medicine Gastroenterology
DX: Z12.11 Encounter for screening for malignant neoplasm of colon (principal); D12.5 Benign neoplasm of sigmoid colon; K57.30 Diverticulosis of large intestine without perforation or abscess without bleeding; K64.4 Residual hemorrhoidal skin tags; K64.8 Other hemorrhoids; Z98.0 Intestinal bypass and anastomosis status; Z13.810 Encounter for screening for upper gastrointestinal disorder; K74.60 Unspecified cirrhosis of liver; Z79.52 Long term (current) use of systemic steroids; Z79.899 Other long term (current) drug therapy; Z88.1 Allergy status to other antibiotic agents; Z88.8 Allergy status to other drugs, medicaments and biological substances; Z91.048 Other nonmedicinal substance allergy status; G47.33 Obstructive sleep apnea (adult) (pediatric); Z99.89 Dependence on other enabling machines and devices; J45.909 Unspecified asthma, uncomplicated; I10 Essential (primary) hypertension; D80.2 Selective deficiency of immunoglobulin A [IgA]; Z80.42 Family history of malignant neoplasm of prostate; Z80.3 Family history of malignant neoplasm of breast; Z86.14 Personal history of Methicillin resistant Staphylococcus aureus infection; Z86.16 Personal history of COVID-19

== ENCOUNTER → 2022-10-05 | Outpatient (REF) | payer OTHER ==
[~2022-10-05] MED LIST changes: +MONT-5 PO; -NS 1,000 ML IV ONE; -SING10TA32 PO
== END ==
LOC: M LAB REF 17:11
PROVIDERS: ATTEND Nurse Practitioner Adult Health
DX: R30.0 Dysuria (principal)

== ENCOUNTER → 2022-10-19 | Outpatient (CLI) | payer OTHER | LOC: M RAD 09:38 | PROVIDERS: ATTEND Nurse Practitioner Adult Health | DX: R30.0 Dysuria (principal) ==

== ENCOUNTER → 2022-11-10 | Outpatient (CLI) | payer OTHER ==
[~2022-11-10] MED LIST changes: -GABA-283 PO; +GABA-284 PO
[2022-11-10 07:49] LABS: HEMATOCRIT 43.5 % (36.0-47.0)
[2022-11-10 07:50] LABS: BASO % 0.1 % (0.0-1.0); HEMATOCRIT 42.9 % (36.0-47.0); HEMOGLOBIN 13.6 g/dl (12.0-15.5); LYMPH # 1.9 10^3/uL (1.5-5.0); LYMPH % 26.7 % (24.0-44.0); MEAN CORPUSCULAR HEMOGLOBIN 29.3 pg (27.0-33.0); MEAN CORPUSCULAR HGB CONC 31.7 g/dl (32.0-36.5); MEAN CORPUSCULAR VOLUME 92.5 fl (80.0-96.0); MONO # 0.6 10^3/uL (0.0-0.8); MONO % 8.2 % (2.0-8.0); NEUTROPHILS # 4.5 10^3/uL (1.5-8.5); NEUTROPHILS % 64.6 % (36.0-66.0); PLATELET COUNT, AUTOMATED 211 10^3/uL (150-450); RED BLOOD COUNT 4.64 10^6/uL (4.00-5.40)
[2022-11-10 08:09] LABS: HEMOGLOBIN A1c 4.9 % (4.0-6.0)
[2022-11-10 08:14] LABS: ALBUMIN 3.5 G/DL (3.2-5.2); ALKALINE PHOSPHATASE 78 U/L (46-116); ALT/SGPT 18 U/L (7.0-40); AST/SGOT < 8 U/L (<34); BILIRUBIN,TOTAL 0.5 MG/DL (0.3-1.2); BLOOD UREA NITROGEN 17 MG/DL (9-23); CALCIUM LEVEL 9.2 MG/DL (8.5-10.1); CARBON DIOXIDE LEVEL 31 MMOL/L (20-31); CHLORIDE LEVEL 104 MMOL/L (98-107); CREATININE FOR GFR 1.04 MG/DL (0.55-1.30); GLOMERULAR FILTRATION RATE 58.4 (>51); GLUCOSE, FASTING 92 MG/DL (60-100); MAGNESIUM LEVEL 1.7 MG/DL (1.8-2.4); PHOSPHORUS LEVEL 4.6 MG/DL (2.5-4.9); POTASSIUM SERUM 4.4 MMOL/L (3.5-5.1); SODIUM LEVEL 139 MMOL/L (136-145); TOTAL IRON BINDING CAPACITY 273 UG/DL (250-425); TOTAL PROTEIN 7.2 G/DL (5.7-8.2)
[2022-11-10 08:15] LABS: IRON (FE) 72 UG/DL (50-170); PERCENT SATURATION 26.4 % (13.2-45.0)
[2022-11-10 08:16] LABS: FERRITIN 106.1 NG/ML (7.3-270.7); TOTAL 25(OH) VITAMIN D 66.9 NG/ML (20.0-100.0); VITAMIN B12 LEVEL 1169 PG/ML (211-911)
== END ==
LOC: M LAB 07:04
PROVIDERS: ATTEND Physician Assistant Surgical
DX: K91.2 Postsurgical malabsorption, not elsewhere classified (principal); E55.9 Vitamin D deficiency, unspecified; Z98.84 Bariatric surgery status; Z86.39 Personal history of other endocrine, nutritional and metabolic disease

== ENCOUNTER → 2022-11-10 | Outpatient (CLI) | payer OTHER ==
[2022-11-10 07:50] LABS: HEMATOCRIT 44.5 % (36.0-47.0); HEMOGLOBIN 13.9 g/dl (12.0-15.5); LYMPH # 1.9 10^3/uL (1.5-5.0); LYMPH % 27.6 % (24.0-44.0); MEAN CORPUSCULAR HEMOGLOBIN 29.6 pg (27.0-33.0); MEAN CORPUSCULAR HGB CONC 31.2 g/dl (32.0-36.5); MEAN CORPUSCULAR VOLUME 94.7 fl (80.0-96.0); MONO # 0.5 10^3/uL (0.0-0.8); MONO % 8.1 % (2.0-8.0); NEUTROPHILS # 4.3 10^3/uL (1.5-8.5); PLATELET COUNT, AUTOMATED 207 10^3/uL (150-450); WHITE BLOOD COUNT 6.7 10^3/uL (4.0-10.0)
[2022-11-10 08:09] LABS: HEMOGLOBIN A1c 4.9 % (4.0-6.0)
[2022-11-10 08:13] LABS: CREATININE, URINE 214.5 MG/DL; IRON (FE) 83 UG/DL (50-170); MAU/CREAT RATIO 2.7 MCG/MG (0.0-30.0); PERCENT SATURATION 29.6 % (13.2-45.0); TOTAL IRON BINDING CAPACITY 280 UG/DL (250-425)
[2022-11-10 08:14] LABS: ALBUMIN 3.4 G/DL (3.2-5.2); ALKALINE PHOSPHATASE 78 U/L (46-116); ALT/SGPT 17 U/L (7.0-40); AST/SGOT 9 U/L (<34); BILIRUBIN,TOTAL 0.5 MG/DL (0.3-1.2); BLOOD UREA NITROGEN 17 MG/DL (9-23); CALCIUM LEVEL 9.5 MG/DL (8.5-10.1); CARBON DIOXIDE LEVEL 32 MMOL/L (20-31); CHLORIDE LEVEL 105 MMOL/L (98-107); CHOLESTEROL LEVEL 162 MG/DL (<200); CHOLESTEROL RISK RATIO 3.44 (<5); CREATININE FOR GFR 1.05 MG/DL (0.55-1.30); GLOMERULAR FILTRATION RATE 57.7 (>51); GLUCOSE, FASTING 96 MG/DL (60-100); LDL CHOLESTEROL 92.8 MG/DL (<100); POTASSIUM SERUM 4.4 MMOL/L (3.5-5.1); SODIUM LEVEL 141 MMOL/L (136-145); TOTAL PROTEIN 7.1 G/DL (5.7-8.2); TRIGLYCERIDES LEVEL 111 MG/DL (<150)
[2022-11-10 08:16] LABS: FOLATE > 24.0 NG/ML (>5.4); VITAMIN B12 LEVEL 954 PG/ML (211-911)
== END ==
LOC: M LAB 07:01
PROVIDERS: ATTEND Family Medicine
DX: E11.9 Type 2 diabetes mellitus without complications (principal); D51.9 Vitamin B12 deficiency anemia, unspecified

== ENCOUNTER → 2022-12-03 | Outpatient (CLI) | payer OTHER | LOC: M RAD 08:38 | PROVIDERS: ATTEND Nurse Practitioner Family | DX: J45.30 Mild persistent asthma, uncomplicated (principal); M41.86 Other forms of scoliosis, lumbar region ==

== ENCOUNTER → 2023-01-14 | Outpatient (REF) | payer OTHER ==
[2023-01-14 14:29] LABS: EOS % 0.2 % (0.0-3.0); HEMATOCRIT 42.9 % (36.0-47.0); HEMOGLOBIN 13.6 g/dl (12.0-15.5); LYMPH % 34.1 % (24.0-44.0); MEAN CORPUSCULAR HEMOGLOBIN 30.2 pg (27.0-33.0); MEAN CORPUSCULAR HGB CONC 31.7 g/dl (32.0-36.5); MEAN CORPUSCULAR VOLUME 95.1 fl (80.0-96.0); MONO # 0.6 10^3/uL (0.0-0.8); MONO % 10.4 % (2.0-8.0); NEUTROPHILS # 3.2 10^3/uL (1.5-8.5); PLATELET COUNT, AUTOMATED 189 10^3/uL (150-450); RED BLOOD COUNT 4.51 10^6/uL (4.00-5.40); WHITE BLOOD COUNT 5.9 10^3/uL (4.0-10.0)
[2023-01-14 14:41] LABS: ERYTHROCYTE SEDIMENTATION RATE 22 mm/hr (0-30)
[2023-01-14 14:54] LABS: C REACTIVE PROTEIN QUANTITATIV < 0.40 MG/DL (<1.0)
[2023-01-14 14:56] LABS: URIC ACID 4.5 MG/DL (3.1-7.8)
== END ==
LOC: M LAB REF 12:23
PROVIDERS: ATTEND Nurse Practitioner Adult Health
DX: L03.90 Cellulitis, unspecified (principal)

== ENCOUNTER → 2023-06-21 | Outpatient (CLI) | payer OTHER ==
[~2023-06-21] MED LIST changes: +CEFD1CAP9 PO; -CEFD300C41 PO; +HYDR-161 PO; -HYDR10TAB PO
== END ==
LOC: M RAD 10:16
PROVIDERS: ATTEND Nurse Practitioner Family
DX: J45.30 Mild persistent asthma, uncomplicated (principal); R91.8 Other nonspecific abnormal finding of lung field

== ENCOUNTER → 2023-06-27 | Outpatient (REF) | payer OTHER | LOC: M LAB REF 17:11 | PROVIDERS: ATTEND Nurse Practitioner Family | DX: R91.8 Other nonspecific abnormal finding of lung field (principal) ==

== ENCOUNTER → 2023-07-28 | Outpatient (CLI) | payer OTHER ==
[2023-08-14 23:08] LABS: ACETYLCHOLINE RCPTOR BINDING A < 0.03 nmol/L (0.00-0.24); ACETYLCHOLINE RCPTOR BLOCK AB 24 % (0-25)
== END ==
LOC: M LAB 08:06
PROVIDERS: ATTEND Psychiatry & Neurology Neurology
DX: R53.1 Weakness (principal)

== ENCOUNTER → 2023-07-28 | Outpatient (CLI) | payer OTHER ==
[2023-07-28 09:56] LABS: HEMATOCRIT 42.4 % (36.0-47.0); HEMOGLOBIN 13.4 g/dl (12.0-15.5); LYMPH # 1.7 10^3/uL (1.5-5.0); MEAN CORPUSCULAR HEMOGLOBIN 29.6 pg (27.0-33.0); MEAN CORPUSCULAR HGB CONC 31.6 g/dl (32.0-36.5); MEAN CORPUSCULAR VOLUME 93.8 fl (80.0-96.0); MONO # 0.5 10^3/uL (0.0-0.8); MONO % 10.3 % (2.0-8.0); NEUTROPHILS # 2.6 10^3/uL (1.5-8.5); NEUTROPHILS % 53.5 % (36.0-66.0); PLATELET COUNT, AUTOMATED 177 10^3/uL (150-450); RED BLOOD COUNT 4.52 10^6/uL (4.00-5.40); WHITE BLOOD COUNT 4.8 10^3/uL (4.0-10.0)
[2023-07-28 10:20] LABS: HEMOGLOBIN A1c 4.8 % (4.0-6.0)
[2023-07-28 10:22] LABS: ALBUMIN 3.4 G/DL (3.2-5.2); ALKALINE PHOSPHATASE 74 U/L (46-116); ALT/SGPT 22 U/L (7.0-40); AST/SGOT 17 U/L (<34); BILIRUBIN,TOTAL 0.6 MG/DL (0.3-1.2); BLOOD UREA NITROGEN 16 MG/DL (9-23); CALCIUM LEVEL 8.9 MG/DL (8.5-10.1); CARBON DIOXIDE LEVEL 32 MMOL/L (20-31); CHLORIDE LEVEL 105 MMOL/L (98-107); CHOLESTEROL LEVEL 154 MG/DL (<200); CHOLESTEROL RISK RATIO 3.64 (<5); CREATININE FOR GFR 0.85 MG/DL (0.55-1.30); FREE T4 1.41 NG/DL (0.89-1.76); GLOMERULAR FILTRATION RATE > 60.0 (>51); GLUCOSE, FASTING 84 MG/DL (60-100); HDL CHOLESTEROL 42.3 MG/DL (>40); LDL CHOLESTEROL 89.7 MG/DL (<100); NON-HDL-C 111.7 MG/DL; POTASSIUM SERUM 4.4 MMOL/L (3.5-5.1); SODIUM LEVEL 142 MMOL/L (136-145); TOTAL PROTEIN 7.2 G/DL (5.7-8.2); TRIGLYCERIDES LEVEL 110 MG/DL (<150)
[2023-07-28 10:23] LABS: THYROID STIMULATING HORMONE 0.804 uIU/ML (0.55-4.78); VITAMIN B12 LEVEL 1029 PG/ML (211-911)
[2023-07-28 10:25] LABS: FOLATE > 24.0 NG/ML (>5.4)
== END ==
LOC: M LAB 08:03
PROVIDERS: ATTEND Nurse Practitioner Adult Health
DX: E78.2 Mixed hyperlipidemia (principal); E11.9 Type 2 diabetes mellitus without complications; D51.9 Vitamin B12 deficiency anemia, unspecified; I13.11 Hypertensive heart and chronic kidney disease without heart failure, with stage 5 chronic kidney disease, or end stage renal disease

== ENCOUNTER → 2023-08-12 | Outpatient (CLI) | payer OTHER | LOC: M WHC 12:23 | PROVIDERS: ATTEND Nurse Practitioner Adult Health | DX: Z12.31 Encounter for screening mammogram for malignant neoplasm of breast (principal) ==

== ENCOUNTER → 2023-08-17 | Outpatient (CLI) | payer OTHER | LOC: M PLAIMG 09:06 | PROVIDERS: ATTEND Nurse Practitioner Family | DX: R91.8 Other nonspecific abnormal finding of lung field (principal) ==

== ENCOUNTER → 2023-09-01 | Outpatient (CLI) | payer OTHER | LOC: M LAB 10:29 | PROVIDERS: ATTEND Nurse Practitioner Family | DX: R91.8 Other nonspecific abnormal finding of lung field (principal) ==

== ENCOUNTER → 2024-01-17 | Outpatient (REF) | payer OTHER ==
[~2024-01-17] MED LIST changes: -FLUO0.0114 AU; +FLUO0.0133 AU; +ONDA-282; +ONDA-282 SL; -ONDA4TAB6; -ONDA4TAB6 SL
[2024-01-17 13:48] LABS: CREATININE, URINE 65.1 MG/DL; MALB URINE SIEMENS < 3.0 MG/L; MAU/CREAT RATIO 4.6 MCG/MG (0.0-30.0)
[2024-01-17 14:07] LABS: BASO % 0.1 % (0.0-1.0); HEMATOCRIT 41.8 % (36.0-47.0); HEMOGLOBIN 13.4 g/dl (12.0-15.5); LYMPH # 1.3 10^3/uL (1.5-5.0); LYMPH % 9.4 % (24.0-44.0); MEAN CORPUSCULAR HEMOGLOBIN 29.8 pg (27.0-33.0); MEAN CORPUSCULAR HGB CONC 32.1 g/dl (32.0-36.5); MEAN CORPUSCULAR VOLUME 92.9 fl (80.0-96.0); MONO # 1.2 10^3/uL (0.0-0.8); MONO % 8.5 % (2.0-8.0); NEUTROPHILS % 81.6 % (36.0-66.0); PLATELET COUNT, AUTOMATED 212 10^3/uL (150-450); WHITE BLOOD COUNT 13.5 10^3/uL (4.0-10.0)
[2024-01-17 14:35] LABS: ALBUMIN 3.4 G/DL (3.2-5.2); ALKALINE PHOSPHATASE 93 U/L (46-116); ALT/SGPT 14 U/L (7.0-40); AST/SGOT < 8 U/L (<34); BILIRUBIN,TOTAL 0.7 MG/DL (0.3-1.2); BLOOD UREA NITROGEN 14 MG/DL (9-23); CALCIUM LEVEL 9.3 MG/DL (8.5-10.1); CARBON DIOXIDE LEVEL 31 MMOL/L (20-31); CHLORIDE LEVEL 102 MMOL/L (98-107); CREATININE FOR GFR 0.97 MG/DL (0.55-1.30); GLOMERULAR FILTRATION RATE > 60.0 (>51); GLUCOSE, FASTING 77 MG/DL (60-100); POTASSIUM SERUM 4.7 MMOL/L (3.5-5.1); SODIUM LEVEL 139 MMOL/L (136-145); TOTAL PROTEIN 7.4 G/DL (5.7-8.2)
[2024-01-17 16:41] LABS: HEMOGLOBIN A1c 4.9 % (4.0-6.0)
== END ==
LOC: M LAB REF 12:21
PROVIDERS: ATTEND Nurse Practitioner Adult Health
DX: E11.9 Type 2 diabetes mellitus without complications (principal)

== ENCOUNTER → 2024-04-18 | Outpatient (REF) | payer OTHER ==
[2024-04-18 14:23] LABS: HEMATOCRIT 41.6 % (36.0-47.0); HEMOGLOBIN 13.3 g/dl (12.0-15.5); LYMPH # 1.6 10^3/uL (1.5-5.0); LYMPH % 30.9 % (24.0-44.0); MEAN CORPUSCULAR HEMOGLOBIN 29.6 pg (27.0-33.0); MEAN CORPUSCULAR VOLUME 92.4 fl (80.0-96.0); MONO # 0.6 10^3/uL (0.0-0.8); MONO % 11.1 % (2.0-8.0); NEUTROPHILS % 57.8 % (36.0-66.0); PLATELET COUNT, AUTOMATED 205 10^3/uL (150-450); WHITE BLOOD COUNT 5.2 10^3/uL (4.0-10.0)
[2024-04-18 14:50] LABS: ALBUMIN 3.7 G/DL (3.2-5.2); ALKALINE PHOSPHATASE 83 U/L (35-104); ALT/SGPT 23 U/L (7.0-40); AST/SGOT 16 U/L (<34); BILIRUBIN,TOTAL 0.7 MG/DL (0.3-1.2); BLOOD UREA NITROGEN 14 MG/DL (9-23); CALCIUM LEVEL 9.6 MG/DL (8.5-10.1); CARBON DIOXIDE LEVEL 32 MMOL/L (20-31); CHLORIDE LEVEL 106 MMOL/L (98-107); CHOLESTEROL LEVEL 171 MG/DL (<200); CHOLESTEROL RISK RATIO 4.28 (<5); CREATININE FOR GFR 1.05 MG/DL (0.55-1.30); GLOMERULAR FILTRATION RATE 57.3 (>51); GLUCOSE, FASTING 86 MG/DL (60-100); HDL CHOLESTEROL 39.9 MG/DL (>40); LDL CHOLESTEROL 104.7 MG/DL (<100); NON-HDL-C 131.1 MG/DL; SODIUM LEVEL 139 MMOL/L (136-145); TOTAL PROTEIN 7.4 G/DL (5.7-8.2); TRIGLYCERIDES LEVEL 132 MG/DL (<150)
[2024-04-18 14:54] LABS: VITAMIN B12 LEVEL 624 PG/ML (211-911)
[2024-04-18 14:56] LABS: FOLATE > 24.0 NG/ML (>5.4); THYROID STIMULATING HORMONE 0.755 uIU/ML (0.55-4.78)
== END ==
LOC: M LAB REF 11:42
PROVIDERS: ATTEND Nurse Practitioner Adult Health
DX: E11.9 Type 2 diabetes mellitus without complications (principal); E78.2 Mixed hyperlipidemia; D51.9 Vitamin B12 deficiency anemia, unspecified; F90.0 Attention-deficit hyperactivity disorder, predominantly inattentive type

== ENCOUNTER → 2024-07-11 | Outpatient (CLI) | payer OTHER ==
[~2024-07-11] MED LIST changes: +PROHANCE 279.3MG/ML 15ML VIAL ONE; +PROHANCE 279.3MG/ML 5ML VIAL ONE
== END ==
LOC: M PLAIMG 06:41
PROVIDERS: ATTEND Physician Assistant Medical
DX: H90.3 Sensorineural hearing loss, bilateral (principal); J01.20 Acute ethmoidal sinusitis, unspecified
CPT/HCPCS: 70553; A9576

== ENCOUNTER → 2024-08-13 | Outpatient (CLI) | payer OTHER ==
[~2024-08-13] MED LIST changes: -PROHANCE 279.3MG/ML 15ML VIAL ONE; -PROHANCE 279.3MG/ML 5ML VIAL ONE
== END ==
LOC: M WHC 09:23
PROVIDERS: ATTEND Nurse Practitioner Adult Health
DX: Z12.31 Encounter for screening mammogram for malignant neoplasm of breast (principal); R92.313 Mammographic fatty tissue density, bilateral breasts

== ENCOUNTER → 2024-09-29 | Day surgery (SDC) | payer OTHER ==
[~2024-09-29] VITALS: Ht 162.6 cm; Wt 82.1 kg
[~2024-09-29] MED LIST changes: +ACETAMINOPHEN 1000MG/100ML IV BAG As Ordered ONE; +CVSTAB PO; +DOXY100C3 PO; +FLUT15.820; +LIDOCAINE 2% 100 MG/5 ML SDV (FOR ANES.) As Ordered ONE; +ONDANSETRON 4MG 2ML VIAL As Ordered ONE; +PROBCAP14 PO; +PROP10TA56 PO; +ZYVO1TAB PO; +dexAMETHasone 4 MG/ML 1 ML VIAL As Ordered ONE; +dexmedeTOMIDine (4 MCG/ML) 200 MCG/50 ML BTL As Ordered ONE; +fentaNYL 100 MCG/2 ML INJECTION As Ordered ONE; +propofoL 200 MG/20 ML VIAL As Ordered ONE
[2024-09-29] MEDS: CIPRODEX OTIC SUSP 7.5 ML As Ordered ONE (10:08)
[2024-09-29 10:40] VITALS: BP 119/58; TEMP 97.8; O2SAT 96
== END | disposition home or self-care (01) ==
LOC: EDSTATUS 09-28 08:24 → M OPP 09-28 17:54 → M SDC 08:25
PROVIDERS: ATTEND Otolaryngology
DX: H70.091 Acute mastoiditis with other complications, right ear (principal); T85.628A Displacement of other specified internal prosthetic devices, implants and grafts, initial encounter; X58.XXXA Exposure to other specified factors, initial encounter
CPT/HCPCS: 69436; J0131; J1100; J2405; J3010

== ENCOUNTER → 2024-10-15 | Outpatient (REF) | payer OTHER ==
[~2024-10-15] MED LIST changes: -ACETAMINOPHEN 1000MG/100ML IV BAG As Ordered ONE; -LIDOCAINE 2% 100 MG/5 ML SDV (FOR ANES.) As Ordered ONE; -ONDANSETRON 4MG 2ML VIAL As Ordered ONE; -dexAMETHasone 4 MG/ML 1 ML VIAL As Ordered ONE; -dexmedeTOMIDine (4 MCG/ML) 200 MCG/50 ML BTL As Ordered ONE; -fentaNYL 100 MCG/2 ML INJECTION As Ordered ONE; -propofoL 200 MG/20 ML VIAL As Ordered ONE
[2024-10-15 11:48] LABS: PLATELET COUNT, AUTOMATED 151 10^3/uL (150-450)
[2024-10-15 12:12] LABS: C REACTIVE PROTEIN QUANTITATIV < 0.50 MG/DL (<1.0); CALCIUM LEVEL 8.6 MG/DL (8.5-10.1); CARBON DIOXIDE LEVEL 26 MMOL/L (20-31); CHLORIDE LEVEL 108 MMOL/L (98-107); CREATININE FOR GFR 0.79 MG/DL (0.55-1.30); GLOMERULAR FILTRATION RATE 86.7 (>51); POTASSIUM SERUM 3.9 MMOL/L (3.5-5.1); SODIUM LEVEL 147 MMOL/L (136-145)
== END ==
LOC: M LAB REF 11:18
PROVIDERS: ATTEND Internal Medicine
DX: G00.9 Bacterial meningitis, unspecified (principal); Z45.2 Encounter for adjustment and management of vascular access device; G93.41 Metabolic encephalopathy; Z79.2 Long term (current) use of antibiotics

== ENCOUNTER → 2024-10-18 | Outpatient (CLI) | payer OTHER | LOC: M RAD 13:26 | PROVIDERS: ATTEND Nurse Practitioner Adult Health | DX: E04.1 Nontoxic single thyroid nodule (principal) ==

== ENCOUNTER → 2024-10-19 | Outpatient (CLI) | payer OTHER ==
[~2024-10-19] MED LIST changes: +PROHANCE 279.3MG/ML 15ML VIAL As Ordered ONE; +PROHANCE 279.3MG/ML 5ML VIAL As Ordered ONE
== END ==
LOC: M RAD 16:19
PROVIDERS: ATTEND Physician Assistant
DX: G04.90 Encephalitis and encephalomyelitis, unspecified (principal); G93.89 Other specified disorders of brain
CPT/HCPCS: 70553; A9576

== ENCOUNTER → 2024-10-29 | Outpatient (REF) | payer OTHER ==
[~2024-10-29] MED LIST changes: -PROHANCE 279.3MG/ML 15ML VIAL As Ordered ONE; -PROHANCE 279.3MG/ML 5ML VIAL As Ordered ONE
[2024-10-29 12:43] LABS: PLATELET COUNT, AUTOMATED 172 10^3/uL (150-450)
[2024-10-29 13:17] LABS: C REACTIVE PROTEIN QUANTITATIV < 0.50 MG/DL (<1.0)
[2024-10-29 13:18] LABS: CALCIUM LEVEL 8.7 MG/DL (8.5-10.1); CARBON DIOXIDE LEVEL 28 MMOL/L (20-31); CHLORIDE LEVEL 108 MMOL/L (98-107); CREATININE FOR GFR 0.86 MG/DL (0.55-1.30); GLOMERULAR FILTRATION RATE 78.3 (>51); POTASSIUM SERUM 3.9 MMOL/L (3.5-5.1); SODIUM LEVEL 148 MMOL/L (136-145)
== END ==
LOC: M LAB REF 11:48
PROVIDERS: ATTEND Internal Medicine
DX: G00.9 Bacterial meningitis, unspecified (principal)

== ENCOUNTER → 2024-11-08 | Outpatient (CLI) | payer OTHER | LOC: M PLARAD 07:47 | PROVIDERS: ATTEND Physician Assistant | DX: G04.90 Encephalitis and encephalomyelitis, unspecified (principal); J01.21 Acute recurrent ethmoidal sinusitis; J01.30 Acute sphenoidal sinusitis, unspecified; J01.00 Acute maxillary sinusitis, unspecified; J01.10 Acute frontal sinusitis, unspecified; H70.93 Unspecified mastoiditis, bilateral ==

== ENCOUNTER → 2024-12-25 | Outpatient (CLI) | payer OTHER ==
[~2024-12-25] MED LIST changes: +PROHANCE 279.3MG/ML 15ML VIAL ONE; +PROHANCE 279.3MG/ML 5ML VIAL ONE
== END ==
LOC: M PLAIMG 14:53
PROVIDERS: ATTEND Neurological Surgery
DX: G04.90 Encephalitis and encephalomyelitis, unspecified (principal); H74.8X3 Other specified disorders of middle ear and mastoid, bilateral
CPT/HCPCS: 70553; A9576

== ENCOUNTER → 2025-01-03 | Outpatient (CLI) | payer OTHER ==
[~2025-01-03] MED LIST changes: -PROHANCE 279.3MG/ML 15ML VIAL ONE; -PROHANCE 279.3MG/ML 5ML VIAL ONE
== END ==
LOC: M PLAIMG 13:45
PROVIDERS: ATTEND Neurological Surgery
DX: G06.0 Intracranial abscess and granuloma (principal); G93.40 Encephalopathy, unspecified

== ENCOUNTER → 2025-01-31 | Outpatient (REF) | payer OTHER ==
[2025-01-31 13:28] LABS: BASO # 0.0 10^3/uL (0.0-0.2); BASO % 0.0 % (0.0-1.0); EOS # 0.0 10^3/uL (0.0-0.5); EOS % 0.0 % (0.0-3.0); LYMPH # 1.2 10^3/uL (1.5-5.0); LYMPH % 21.1 % (24.0-44.0); MONO # 0.5 10^3/uL (0.0-0.8); MONO % 9.1 % (2.0-8.0); NEUTROPHILS # 3.8 10^3/uL (1.5-8.5); NEUTROPHILS % 69.4 % (36.0-66.0); PLATELET COUNT, AUTOMATED 191 10^3/uL (150-450)
[2025-01-31 13:47] LABS: MALB URINE SIEMENS 5.0 MG/L
[2025-01-31 13:52] LABS: ESTIMATED AVERAGE GLUCOSE 111.0 MG/DL (60-110)
[2025-01-31 13:56] LABS: ALT/SGPT 21 U/L (7.0-40); AST/SGOT 20 U/L (<34); CALCIUM LEVEL 8.8 MG/DL (8.5-10.1); CARBON DIOXIDE LEVEL 30 MMOL/L (20-31); CHLORIDE LEVEL 104 MMOL/L (98-107); CHOLESTEROL LEVEL 169 MG/DL (<200); CHOLESTEROL RISK RATIO 4.30 (<5); CREATININE FOR GFR 1.00 MG/DL (0.55-1.30); GLOMERULAR FILTRATION RATE 65.3 (>51); LDL CHOLESTEROL 91.1 MG/DL (<100); NON-HDL-C 129.7 MG/DL; POTASSIUM SERUM 4.2 MMOL/L (3.5-5.1); SODIUM LEVEL 144 MMOL/L (136-145); TRIGLYCERIDES LEVEL 193 MG/DL (<150)
[2025-01-31 13:57] LABS: FREE T4 1.08 NG/DL (0.89-1.76)
[2025-01-31 13:58] LABS: CREATININE, URINE 246.9 MG/DL; MAU/CREAT RATIO 2.0 MCG/MG (0.0-30.0); VITAMIN B12 LEVEL 609 PG/ML (211-911)
== END ==
LOC: M LAB REF 10:18
PROVIDERS: ATTEND Nurse Practitioner Adult Health
DX: E11.9 Type 2 diabetes mellitus without complications (principal); E78.2 Mixed hyperlipidemia; D51.9 Vitamin B12 deficiency anemia, unspecified; I13.10 Hypertensive heart and chronic kidney disease without heart failure, with stage 1 through stage 4 chronic kidney disease, or unspecified chronic kidney disease

== ENCOUNTER → 2025-02-12 | Outpatient (CLI) | payer OTHER ==
[~2025-02-12] MED LIST changes: +PROHANCE 279.3MG/ML 15ML VIAL ONE; +PROHANCE 279.3MG/ML 5ML VIAL ONE
== END ==
LOC: M PLAIMG 13:41
PROVIDERS: ATTEND Neurological Surgery
DX: G06.0 Intracranial abscess and granuloma (principal)
CPT/HCPCS: 70553; A9576